=== PATIENT | female | born 1960 ===

== ENCOUNTER 2020-10-23 10:27 | Outpatient (REF) | payer BC, SELFPAY ==
[2020-10-23 10:33] LABS: MANUAL DIFF FLAG NO
[2020-10-23 10:44] LABS: Basophils Percent Auto 0.3 % (0-2); Eosinophils Absolute Auto 0.2 X10*3/uL (0.0-0.4); Eosinophils Percent Auto 2.4 % (0-4); Hematocrit 43.9 % (37-47); Hemoglobin 13.8 g/dl (12.0-16.0); Imm Gran Abs Auto 0.04 X10*3/uL (0.00-0.03); Imm Gran Pct Auto 0.4 % (0.0-0.4); Lymphocytes Absolute Auto 2.2 X10*3/uL (1.2-4.9); Lymphocytes Percent Auto 22.2 % (20-40); Mean Corpuscular HGB Conc 31.4 g/dl (31.0-35.0); Mean Corpuscular Hemoglobin 28.6 pg (27.0-33.0); Mean Corpuscular Volume 91.1 fL (80-98); Monocytes Absolute Auto 0.7 X10*3/uL (0.1-1.2); Monocytes Percent Auto 7.4 % (2-11); Neutrophils Absolute Auto 6.6 X10*3/uL (2.0-8.3); Neutrophils Percent Auto 67.3 % (45-73); Platelet Count 288 X10*3/uL (160-400); Red Blood Count 4.82 X10*6/uL (4.20-5.50); Red Cell Distribution Width 13.3 % (11.0-16.0); White Blood Count 9.8 X10*3/uL (4.8-10.8)
[2020-10-23 10:52] LABS: Estimated Average Glucose 114 mg/dL; Hemoglobin A1c % 5.6 %
[2020-10-23 11:19] LABS: Glucose Urine UA NEG (NEG); Leukocyte Esterase Urine 2+ (NEG); Nitrite Urine NEG (NEG); Specific Gravity - Urine 1.025 (1.005-1.025); Urine Blood 3+ (NEG); Urine Ketones NEG (NEG); Urine Protein TRACE MG/DL (NEG-TRACE)
[2020-10-23 11:37] LABS: Appearance Urine HAZY; Color Urine YELLOW
[2020-10-23 11:41] LABS: Alanine Aminotransferase 20 U/L (0-31); Alkaline Phosphatase 79 U/L (39-117); Anion Gap 14 (12-20); Aspartate Amino Transferase 21 U/L (5-31); Bilirubin Total 0.5 mg/dL (0.0-1.0); Blood Urea Nitrogen 11 mg/dL (9-16); Carbon Dioxide 27 mmol/L (22-29); Chloride 105 mmol/L (96-108); Cholesterol 191 mg/dL; Estimated Glomerular Filt Rate 58; Glucose Fasting 119 mg/dL (60-99); HDL Cholesterol 44 mg/dL; LDL Cholesterol Calculated 120 mg/dl; Potassium 4.7 mmol/L (3.3-5.1); Sodium 141 mmol/L (135-145); Total Protein 7.1 g/dL (6.5-8.0); Triglycerides 138 mg/dL
[2020-10-23 11:45] LABS: Vitamin D 25-OH Total 21.7 ng/mL (>30)
[2020-10-23 12:12] LABS: Microalbum/Creatinine Ratio Ur 20.7 ug/mg cr
[2020-10-23 12:23] LABS: Squamous Epithelial Cell Urine 2+ /LPF
== END 2020-10-23 10:28 | disposition home or self-care (01) ==
LOC: HO.LNP 10:27
PROVIDERS: Visit Provider Internal Medicine
DX: Z00.00 Encounter for general adult medical examination without abnormal findings (principal); E03.9 Hypothyroidism, unspecified; R73.03 Prediabetes; I10 Essential (primary) hypertension
CPT/HCPCS: 80053; 80061; 81001; 81003; 82043; 82306; 83036; 84443; 85025

== ENCOUNTER 2020-11-06 12:22 | Outpatient (REF) | payer BC, SELFPAY ==
[2020-11-06 14:18] LABS: Glucose Urine UA NEG (NEG); Leukocyte Esterase Urine 2+ (NEG); Nitrite Urine NEG (NEG); Specific Gravity - Urine <= 1.005 (1.005-1.025); Urine Blood TRACE (NEG); Urine Ketones NEG (NEG); Urine Protein NEG (NEG-TRACE)
[2020-11-06 14:20] LABS: Appearance Urine HAZY; Color Urine YELLOW
[2020-11-06 14:36] LABS: Bacteria Urine TRACE /LPF; RBC Urine 0-2 /HPF (0); Squamous Epithelial Cell Urine 1+ /LPF
== END 2020-11-06 12:23 | disposition home or self-care (01) ==
LOC: HO.10HDLNP 12:22
PROVIDERS: Visit Provider Internal Medicine
DX: Z87.448 Personal history of other diseases of urinary system (principal)
CPT/HCPCS: 81001; 87086

== ENCOUNTER 2020-12-04 10:24 | Outpatient (REF) | payer BC, SELFPAY ==
[2020-12-04 10:59] LABS: Glucose Urine UA NEG (NEG); Leukocyte Esterase Urine 2+ (NEG); Nitrite Urine NEG (NEG); Specific Gravity - Urine 1.025 (1.005-1.025); Urine Blood 3+ (NEG); Urine Ketones NEG (NEG); Urine Protein NEG (NEG-TRACE)
[2020-12-04 11:04] LABS: Appearance Urine HAZY; Color Urine YELLOW
[2020-12-04 11:32] LABS: Renal Epithelial Cells Urine 1+ /LPF; Squamous Epithelial Cell Urine 1+ /LPF; WBC Urine 0 /HPF (0-4)
== END 2020-12-04 10:25 | disposition home or self-care (01) ==
LOC: HO.LNP 10:24
PROVIDERS: Visit Provider Internal Medicine
DX: Z87.448 Personal history of other diseases of urinary system (principal)
CPT/HCPCS: 81001; 81003

== ENCOUNTER 2021-01-20 10:30 | Emergency (ER) | payer BC, SELFPAY ==
--- NOTE | ~2021-01-20 | CT_ITS ---
EXAMINATION: CT CHEST WITHOUT CONTRAST CLINICAL INFORMATION: Dyspnea COMPARISON: Previous chest x-ray from earlier the same day TECHNIQUE: Multidetector volumetric CT imaging of the chest was done. Axial MIP volume rendering provided. Sagittal and coronal reformatted images were obtained. This CT examination was performed using dose optimization techniques as appropriate, variously including the following: *Automated exposure control *Adjustment of mA and/or kV according to patient size (this includes techniques or standardized protocols for targeted exams where dose is matched to indication/reason for exam; i.e. 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 The largest measures 3 mm in the right lower lobe axial image 333 series 5. There is subsegmental atelectasis in both lower lobes. MEDIASTINUM: The mediastinum is normal. PLEURA: There is no pleural effusion. No pleural mass or thickening. AXILLA: No lymphadenopathy. UPPER ABDOMEN: There is a small air-fluid level posterior to the proximal stomach. This measures 3.2 x 3.4 cm. Appearance is questionable for a gastric diverticulum. Images through the upper abdomen are otherwise unremarkable. OSSEOUS STRUCTURES: There are degenerative changes of the spine. CT/CT chest wo con IMPRESSION: Small calcified pulmonary nodules probably representing calcified granulomas. Mild subsegmental atelectasis at the lung bases. No evidence of pneumonia. Small air-fluid level behind the stomach. This may represent a gastric diverticulum. If there is abdominal pain, possible abscess or perforation should be excluded and additional abdominal imaging with oral and IV contrast would be recommended
--- NOTE | ~2021-01-20 | XR_ITS ---
EXAMINATION: XR CHEST CLINICAL INFORMATION: SOB. COMPARISON: None TECHNIQUE: Chest 07/19/2016 FINDINGS: No significant abnormality is noted involving the heart, lungs, mediastinum, bony thorax or soft tissues. XR/XR chest 2V IMPRESSION: Markable chest exam
[2021-01-20 10:55] VITALS: BP 179/87; PULSE 69; RESP 18; TEMP 36.7; O2SAT 96; BMI 42.1
[2021-01-20 11:48] LABS: COVID-19 Test Negative (Negative); IDNOW Serial# 9DD0AD1C
[2021-01-20 12:30] LABS: MANUAL DIFF FLAG NO
[2021-01-20 12:32] LABS: Basophils Percent Auto 0.2 % (0-2); Eosinophils Percent Auto 0.1 % (0-4); Hematocrit 44.1 % (37-47); Hemoglobin 14.2 g/dl (12.0-16.0); Imm Gran Abs Auto 0.11 X10*3/uL (0.00-0.03); Imm Gran Pct Auto 0.7 % (0.0-0.4); Lymphocytes Absolute Auto 1.7 X10*3/uL (1.2-4.9); Lymphocytes Percent Auto 10.2 % (20-40); Mean Corpuscular HGB Conc 32.2 g/dl (31.0-35.0); Mean Corpuscular Volume 90.2 fL (80-98); Mean Platelet Volume 9.2 fL (9.4-12.3); Monocytes Percent Auto 6.2 % (2-11); Neutrophils Absolute Auto 13.8 X10*3/uL (2.0-8.3); Neutrophils Percent Auto 82.6 % (45-73); Platelet Count 290 X10*3/uL (160-400); Red Blood Count 4.89 X10*6/uL (4.20-5.50); Red Cell Distribution Width 13.8 % (11.0-16.0); White Blood Count 16.7 X10*3/uL (4.8-10.8)
[2021-01-20 12:46] LABS: Alanine Aminotransferase 18 U/L (0-31); Albumin Level 3.8 g/dL (3.5-5.0); Alkaline Phosphatase 78 U/L (39-117); Anion Gap 13 (12-20); Aspartate Amino Transferase 14 U/L (5-31); Bilirubin Direct 0.2 mg/dL (0.0-0.5); Bilirubin Total 0.4 mg/dL (0.0-1.0); Blood Urea Nitrogen 17 mg/dL (9-16); Carbon Dioxide 26 mmol/L (22-29); Chloride 104 mmol/L (96-108); Creatinine Clr Calc Pharmacy 87.7; Estimated Glomerular Filt Rate > 60; Glucose Random 98 mg/dL (60-115); Lipase 44 U/L (8-78); Potassium 4.9 mmol/L (3.3-5.1); Sodium 138 mmol/L (135-145); Total Protein 6.7 g/dL (6.5-8.0)
[2021-01-20 12:50] LABS: B Type Natriuretic Peptide 35 pg/mL (<100)
--- NOTE | 2021-01-20 13:10 | ED_ITS ---
HPI - SOB/Dyspnea General Chief Complaint: Dyspnea Stated Complaint: cough, diff breathing Time Seen by Provider: 01/20/21 13:09 Source: patient Mode of arrival: ambulatory Limitations: no limitations History of Present Illness MD elicited complaint: shortness of breath Pertinent past history: asthma Onset (ago): day(s) (over a week) Context: recent illness (dx with bronchitis - treated with augmentin completed Tuesday (7 days) prednisone taper now) Timing: constant Severity: moderate Exacerbating factors: lying flat, exertion and coughing Relieving factors: nothing Known history of: asthma Associated symptoms: cough and sputum production Treatment prior to arrival: other (antibiotics, currently on pred taper) Related Data Home Medications Medication Instructions Recorded Confirmed albuterol sulfate 90 mcg/actuation 1 puff PO Q4H PRN 01/20/21 01/20/21 aerosol inhaler cholecalciferol (vitamin D3) 25 25 mcg PO DAILY 01/20/21 01/20/21 mcg (1,000 unit) tablet (Vitamin D3) magnesium aspartate-potassium 1 cap PO DAILY 01/20/21 01/20/21 aspartate 250 mg-250 mg capsule prednisone 10 mg tablet 10 mg PO DAILY 01/20/21 01/20/21 thyroid (pork) 15 mg tablet 1 tab PO QAM 01/20/21 01/20/21 ([place] Thyroid) thyroid (pork) 30 mg tablet 1 tab PO QAM 01/20/21 01/20/21 ([place] Thyroid) Allergies Allergy/AdvReac Type Severity Reaction Status Date / Time pecan nut Allergy Unknown ITCHY Verified 01/20/21 10:58 THROAT walnut Allergy Unknown ITCHY Verified 01/20/21 10:58 THROAT erythromycin base AdvReac Intermediate VOMITING Verified 01/20/21 10:58 [Erythromycin Base] Review of Systems Review of Systems: Constitutional : pos Fever, No Chills ENT/Mouth : No sore throat, No Rhinorrhea, No Swallowing Difficulty Eyes: No Eye Pain, No Swelling, No Redness Cardiovascular : No Chest Pain, positive SOB, No Orthopnea, no Edema Respiratory : pos Cough, pos Sputum, No Wheezing, positive dyspnea Gastrointestinal : No Nausea, No Vomiting, No Diarrhea, No abdominal Pain, No Hematochezia, No Melena Genitourinary : No Dysuria, No Urinary Frequency, No Hematuria Musculoskeletal : No joint pain, No Myalgias Skin : No Skin Lesions, No rash Neuro : No Weakness, No Numbness, No Dizziness, No Headache Psych : No Anxiety/Panic, No Depression Heme/Lymph: No Bruising, No Lymphadenopathy Endocrine : No Polyuria, No Polydipsia All other systems reviewed and are negative [facility] Past Medical History Attestation statement: The following information was validated with the patient. Medical History Asthma Hypothyroid Social History Social History (Updated 01/20/21 @ 13:37 by Pushpa Howard DO) Alcohol intake: never Patient Tobacco Use Status: Never used Tobacco Advance Directives: No Advance Directives Information Provided: Yes Physical Exam Vital Signs: Vital Signs: Last Vital Signs Temp 98.0 F 01/20/21 10:55 Pulse 69 01/20/21 10:55 Resp 18 01/20/21 10:55 BP 179/87 H 01/20/21 10:55 Pulse Ox 96 01/20/21 10:55 Body Mass Index 42.1 Appearance: Alert. Oriented X3. No acute distress. Eyes: Pupils equal, round and reactive to light. ENT: Pharynx normal. Neck: Normal inspection. Neck supple. CVS: Normal heart rate and rhythm. Pulses normal. Respiratory: No respiratory distress. Breath sounds normal. Abdomen: Soft and non-tender. Skin: Skin warm and dry. Normal skin color. Normal skin turgor. Extremities: No lower extremity edema. No calf ttp Neuro: Oriented X 3. No motor deficit. No sensory deficit. Course Course Course Narrative: WBC due to steroid use signed out to Dr. Zarate pending CT scan ddimer negative MDM - SOB/Dyspnea MDM Narrative Medical decision making narrative: 60 yo female with hx of bronchitis and asthma states she feels short of breath with a cough and she has had fevers cannot sleep - treated with steroids and augmentin no improvement in symptoms at this time will obtain EKG, trop, ddimer, CXR, COVID swab - dispo per results and findings, possible CT chest for underlying pneumonia Lab Data Result diagrams: 01/20/21 12:25 01/20/21 12:25 Labs: Lab Results 01/20/21 01/20/21 01/20/21 Range/Units 11:02 12:25 12:25 WBC 16.7 H (4.8-10.8) X10*3/uL RBC 4.89 (4.20-5.50) X10*6/uL Hgb 14.2 (12.0-16.0) g/dl Hct 44.1 (37-47) % MCV 90.2 (80-98) fL MCH 29.0 (27.0-33.0) pg MCHC 32.2 (31.0-35.0) g/dl RDW 13.8 (11.0-16.0) % Plt Count 290 (160-400) X10*3/uL MPV 9.2 L (9.4-12.3) fL Immature Gran % (Auto) 0.7 H (0.0-0.4) % Neut % (Auto) 82.6 H (45-73) % Lymph % (Auto) 10.2 L (20-40) % [place] % (Auto) 6.2 (2-11) % Eos % (Auto) 0.1 (0-4) % Baso % (Auto) 0.2 (0-2) % Lymph # (Auto) 1.7 (1.2-4.9) X10*3/uL [place] # (Auto) 1.0 (0.1-1.2) X10*3/uL Eos # (Auto) 0.0 (0.0-0.4) X10*3/uL Baso # (Auto) 0.0 (0.0-0.2) X10*3/uL Abs Immat Gran (auto) 0.11 H (0.00-0.03) X10*3/uL Absolute Neuts (auto) 13.8 H (2.0-8.3) X10*3/uL Absolute Nucleated RBC 0.000 (0.0-0.012) X10*3/uL Nucleated RBC % (auto) 0.0 (0.0-0.2) /100WBC Sodium 138 (135-145) mmol/L Potassium 4.9 (3.3-5.1) mmol/L Chloride 104 (96-108) mmol/L Carbon Dioxide 26 (22-29) mmol/L Anion Gap 13 (12-20) BUN 17 H D (9-16) mg/dL Creatinine 0.87 (0.5-1.4) mg/dL Estim Creat Clear Calc 87.7 Estimated GFR > 60 Random Glucose 98 (60-115) mg/dL Calcium 9.0 (8.4-10.2) mg/dL Total Bilirubin 0.4 (0.0-1.0) mg/dL Direct Bilirubin 0.2 (0.0-0.5) mg/dL AST 14 (5-31) U/L ALT 18 (0-31) U/L Alkaline Phosphatase 78 (39-117) U/L B-Natriuretic Peptide (<100) pg/mL Total Protein 6.7 (6.5-8.0) g/dL Albumin 3.8 (3.5-5.0) g/dL Lipase 44 (8-78) U/L COVID-19 (IMELDA) Negative (Negative) COVID-19 Clin Com See Note 01/20/21 Range/Units 12:25 WBC (4.8-10.8) X10*3/uL RBC (4.20-5.50) X10*6/uL Hgb (12.0-16.0) g/dl Hct (37-47) % MCV (80-98) fL MCH (27.0-33.0) pg MCHC (31.0-35.0) g/dl RDW (11.0-16.0) % Plt Count (160-400) X10*3/uL MPV (9.4-12.3) fL Immature Gran % (Auto) (0.0-0.4) % Neut % (Auto) (45-73) % Lymph % (Auto) (20-40) % [place] % (Auto) (2-11) % Eos % (Auto) (0-4) % Baso % (Auto) (0-2) % Lymph # (Auto) (1.2-4.9) X10*3/uL Austin # (Auto) (0.1-1.2) X10*3/uL Eos # (Auto) (0.0-0.4) X10*3/uL Baso # (Auto) (0.0-0.2) X10*3/uL Abs Immat Gran (auto) (0.00-0.03) X10*3/uL Absolute Neuts (auto) (2.0-8.3) X10*3/uL Absolute Nucleated RBC (0.0-0.012) X10*3/uL Nucleated RBC % (auto) (0.0-0.2) /100WBC Sodium (135-145) mmol/L Potassium (3.3-5.1) mmol/L Chloride (96-108) mmol/L Carbon Dioxide (22-29) mmol/L Anion Gap (12-20) BUN (9-16) mg/dL Creatinine (0.5-1.4) mg/dL Estim Creat Clear Calc Estimated GFR Random Glucose (60-115) mg/dL Calcium (8.4-10.2) mg/dL Total Bilirubin (0.0-1.0) mg/dL Direct Bilirubin (0.0-0.5) mg/dL AST (5-31) U/L ALT (0-31) U/L Alkaline Phosphatase (39-117) U/L B-Natriuretic Peptide 35 (<100) pg/mL Total Protein (6.5-8.0) g/dL Albumin (3.5-5.0) g/dL Lipase (8-78) U/L COVID-19 (IMELDA) (Negative) COVID-19 Clin Com ECG Data Attestation: I personally reviewed and interpreted this ECG as follows: ECG interpretation date: 01/20/21 ECG interpretation time: 15:30 Interpretation: Rate: 63 Rhythm: NSR Hannah: normal Normal P waves. Normal MIRNA. Normal QRS complex. ST T wave : normal no FARZAD qTC: normal prior studies: no acute ischemia The study has been interpreted contemporaneously by me. . Discharge Plan Discharge Clinical Impression: Acute dyspnea Prescriptions: No Action prednisone 10 mg tablet 10 mg PO DAILY RF: 0 magnesium, potassium aspartate [Potassium, Magnesium Aspartat] 250-250 mg Capsule 1 cap PO DAILY RF: 0 albuterol sulfate 90 mcg/actuation HFA aerosol inhaler 1 puff PO Q4H PRN (Reason: Wheezing) RF: 0 cholecalciferol (vitamin D3) [Vitamin D3] 25 mcg (1,000 unit) Tablet 25 mcg PO DAILY RF: 0 thyroid (pork) [[place] Thyroid] 15 mg tablet 1 tab PO QAM RF: 0 thyroid (pork) [[place] Thyroid] 30 mg tablet 1 tab PO QAM RF: 0
--- NOTE | 2021-01-20 13:27 | ECG_ITS ---
Test Reason : DYSPNEA Blood Pressure : / mmHG Vent. Rate : 063 BPM Atrial Rate : 063 BPM P-R Int : 144 ms QRS Dur : 076 ms QT Int : 416 ms P-R-T Axes : 047 015 007 degrees QTc Int : 425 ms Normal sinus rhythm Low voltage QRS Borderline ECG No previous ECGs available Referred By: Pushpa Howard Electronically Signed By:JAYME PHIPPS MD
--- NOTE | 2021-01-20 14:44 | PHA.MEDREC ---
Pharmacy Consult ? Medication Reconciliation Pharmacy has completed the medication reconciliation. There are no remarkable issues for provider's attention. Monisha Ruby, HariD
[2021-01-20 15:56] LABS: D Dimer < 200 NG/ML
[2021-01-20 16:06] LABS: Troponin-I High Sensitivity < 3.5 ng/L (<3.5-17.0)
== END 2021-01-20 17:56 | disposition home or self-care (01) ==
PROVIDERS: Emergency Medicine; Emergency Provider Emergency Medicine Emergency Medical Services; PCP Internal Medicine
DX: R06.02 Shortness of breath (principal); J45.909 Unspecified asthma, uncomplicated; R05.9 Cough, unspecified; Z20.822 Contact with and (suspected) exposure to COVID-19; Z79.899 Other long term (current) drug therapy
CPT/HCPCS: 36415; 71046; 71250; 80048; 80076; 83690; 83880; 84484; 85025; 85379; 87635; 93005; 99283; 99284

== ENCOUNTER 2021-02-09 10:23 | Outpatient (REF) | payer BC, SELFPAY ==
[2021-02-09 10:26] LABS: MANUAL DIFF FLAG NO
[2021-02-09 11:12] LABS: Basophils Percent Auto 0.3 % (0-2); Eosinophils Absolute Auto 0.2 X10*3/uL (0.0-0.4); Eosinophils Percent Auto 2.4 % (0-4); Hematocrit 42.9 % (37.0-47.0); Hemoglobin 13.5 g/dl (12.0-16.0); Imm Gran Abs Auto 0.06 X10*3/uL (0.00-0.03); Imm Gran Pct Auto 0.7 % (0.0-0.4); Lymphocytes Absolute Auto 1.5 X10*3/uL (1.2-4.9); Lymphocytes Percent Auto 16.5 % (20-40); Mean Corpuscular HGB Conc 31.5 g/dl (31.0-35.0); Mean Corpuscular Hemoglobin 29.2 pg (27.0-33.0); Mean Corpuscular Volume 92.7 fL (80.0-98.0); Mean Platelet Volume 9.9 fL (9.4-12.3); Monocytes Absolute Auto 0.6 X10*3/uL (0.1-1.2); Monocytes Percent Auto 6.8 % (2-11); Neutrophils Absolute Auto 6.61 x10*3/uL (2.0-8.3); Neutrophils Percent Auto 73.3 % (45-73); Platelet Count 285 X10*3/uL (160-400); Red Blood Count 4.63 X10*6/uL (4.20-5.50); Red Cell Distribution Width 13.5 % (11.0-16.0)
== END 2021-02-09 10:24 | disposition home or self-care (01) ==
LOC: HO.LNP 10:23
PROVIDERS: Visit Provider Internal Medicine
DX: D72.828 Other elevated white blood cell count (principal)
CPT/HCPCS: 85025

== ENCOUNTER 2021-04-15 11:38 | Outpatient (REF) | payer BC, SELFPAY ==
[2021-04-15 12:59] LABS: Influenza A PCR NEGATIVE (Negative); Influenza B PCR NEGATIVE (Negative); Resp Syncy Virus RNA Qual PCR NEGATIVE (Negative); SARS COV2 PCR INHOUSE NEGATIVE (Negative)
== END 2021-04-15 11:39 | disposition home or self-care (01) ==
LOC: HO.LNP 11:38
PROVIDERS: Visit Provider Nurse Practitioner Family
DX: Z20.822 Contact with and (suspected) exposure to COVID-19 (principal); J02.9 Acute pharyngitis, unspecified
CPT/HCPCS: 0241U

== ENCOUNTER 2021-10-26 11:07 | Outpatient (REF) | payer BC, SELFPAY ==
[2021-10-26 11:11] LABS: MANUAL DIFF FLAG NO
[2021-10-26 11:28] LABS: Appearance Urine CLEAR; Color Urine YELLOW; Glucose Urine UA NEG (NEG); Leukocyte Esterase Urine 1+ (NEG); Nitrite Urine NEG (NEG); Urine Blood 3+ (NEG); Urine Ketones NEG (NEG); Urine Protein NEG (NEG-TRACE)
[2021-10-26 11:39] LABS: Estimated Average Glucose 105 mg/dL; Hemoglobin A1c % 5.3 %
[2021-10-26 11:40] LABS: Basophils Percent Auto 0.3 % (0-2); Eosinophils Absolute Auto 0.2 X10*3/uL (0.0-0.4); Eosinophils Percent Auto 1.7 % (0-4); Hematocrit 42.4 % (37.0-47.0); Hemoglobin 13.5 g/dl (12.0-16.0); Imm Gran Abs Auto 0.04 X10*3/uL (0.00-0.03); Imm Gran Pct Auto 0.4 % (0.0-0.4); Lymphocytes Absolute Auto 1.7 X10*3/uL (1.2-4.9); Mean Corpuscular HGB Conc 31.8 g/dl (31.0-35.0); Monocytes Absolute Auto 0.6 X10*3/uL (0.1-1.2); Monocytes Percent Auto 6.6 % (2-11); Neutrophils Absolute Auto 6.8 x10*3/uL (2.0-8.3); Platelet Count 289 X10*3/uL (160-400); Red Blood Count 4.66 X10*6/uL (4.20-5.50); Red Cell Distribution Width 14.6 % (11.0-16.0); White Blood Count 9.3 X10*3/uL (4.8-10.8)
[2021-10-26 11:41] LABS: Alanine Aminotransferase 23 U/L (0-31); Alkaline Phosphatase 76 U/L (39-117); Anion Gap 11 (12-20); Aspartate Amino Transferase 19 U/L (5-31); Bilirubin Total 0.4 mg/dL (0.0-1.0); Blood Urea Nitrogen 18 mg/dL (9-16); Calcium 8.8 mg/dL (8.4-10.2); Carbon Dioxide 29 mmol/L (22-29); Chloride 106 mmol/L (96-108); Cholesterol 174 mg/dL; Estimated Glomerular Filt Rate 58; Glucose Fasting 106 mg/dL (60-99); HDL Cholesterol 42 mg/dL; LDL Cholesterol Calculated 115 mg/dl; Potassium 4.5 mmol/L (3.3-5.1); Sodium 141 mmol/L (135-145); Total Protein 6.9 g/dL (6.5-8.0); Triglycerides 87 mg/dL
[2021-10-26 11:44] LABS: Squamous Epithelial Cell Urine 1+ /LPF; Urine Talc Crystals 1+ /LPF
[2021-10-26 11:58] LABS: TSH reflex Free T4 1.95 uIU/mL (0.32-4.0)
[2021-10-26 12:22] LABS: Creatinine Urine 179.83 mg/dL; Microalbum/Creatinine Ratio Ur 12.2 ug/mg cr
== END 2021-10-26 11:08 | disposition home or self-care (01) ==
LOC: HO.LNP 11:07
PROVIDERS: Visit Provider Internal Medicine
DX: Z00.00 Encounter for general adult medical examination without abnormal findings (principal); I10 Essential (primary) hypertension; R73.03 Prediabetes; E03.9 Hypothyroidism, unspecified; D72.828 Other elevated white blood cell count
CPT/HCPCS: 80053; 80061; 81001; 82043; 83036; 84443; 85025

== ENCOUNTER 2021-11-18 09:55 | Outpatient (REF) | payer BC, SELFPAY ==
--- NOTE | ~2021-11-18 | MM_ITS ---
EXAMINATION: BONE DENSITOMETRY CLINICAL INDICATION: Menopause. COMPARISON: None (current study represents initial baseline exam). TECHNIQUE: Using a [employer] DXA System (software version: 13.1) manufactured by [employer], dual-energy x-ray absorptiometry was performed of the lumbar spine and left hip. The images are of good technical quality. Summary results are attached. FINDINGS: AP SPINE L1-L4: BMD 1.069 g/cm2, Z-score -0.7, T-score -0.9, normal. LEFT FEMUR, NECK: BMD 1.025 g/cm2, Z-score 0.5, T-score -0.1, normal. LEFT FEMUR, TOTAL: BMD 1.115 g/cm2, Z-score 1.1, T-score 0.9, normal. IDENTIFIED RISK FACTORS: Menopause, low calcium intake, hysterectomy, bilateral oophorectomy. HISTORY OF FRACTURE: None listed. MEDICATIONS: Vitamin D. MM/XR DEXA axial skeleton IMPRESSION: 1. DIAGNOSIS: Normal bone density based on the lowest T-score value of -0.9 in the lumbar spine applying World Health Organization criteria. 2. 10-YEAR FRACTURE RISK PREDICTION, FRAX: According to the guidelines, FRAX calculation should only be performed on patients in the osteopenia bone density category. Therefore, FRAX was not performed on this patient. 3. Treatment Recommendations: NOF guidelines recommend consideration for treatment in postmenopausal women and men age 50 and older presenting with the following: -A hip or vertebral (clinical or morphometric) fracture. -T-score less than or equal to -2.5 at the femoral neck or spine after appropriate evaluation to exclude secondary causes. -Low bone mass at the hip or spine and a 10-year fracture probability by FRAX of greater than or equal to 3% for hip fracture or greater than or equal to 20% for major osteoporotic fracture based on the [place] adapted WHO algorithm. 4. Other Recommendations: All treatment decisions require clinical judgment and consideration of individual patient factors, including patient preferences, comorbidities, previous drug use, risk factors not captured in the FRAX model (e.g. frailty, falls, vitamin D deficiency, increased bone turnover, interval significant decline in bone density) and possible under or overestimation of fracture risk by FRAX. FUTURE SCAN RECOMMENDATION: People with diagnosed cases of osteoporosis or at high risk for fracture should have regular bone mineral density tests. For patients eligible for Medicare, routine testing is allowed once every 2 years. The testing frequency can be increased to one year for patients who have rapidly progressing disease, those who are receiving or discontinuing medical therapy to restore bone mass, or have additional risk factors.
== END 2021-11-18 09:56 | disposition home or self-care (01) ==
LOC: HO.MAMMO 09:55
PROVIDERS: PCP Internal Medicine; Visit Provider Internal Medicine
DX: Z13.820 Encounter for screening for osteoporosis (principal); Z78.0 Asymptomatic menopausal state
CPT/HCPCS: 77080

== ENCOUNTER 2022-10-07 11:01 | Outpatient (REF) | payer BC, SELFPAY ==
[2022-10-07 11:12] LABS: MANUAL DIFF FLAG NO
[2022-10-07 12:35] LABS: Basophils Percent Auto 0.4 % (0-2); Eosinophils Absolute Auto 0.3 X10*3/uL (0.0-0.4); Eosinophils Percent Auto 3.3 % (0-4); Hematocrit 42.4 % (37.0-47.0); Hemoglobin 13.4 g/dl (12.0-16.0); Imm Gran Abs Auto 0.03 X10*3/uL (0.00-0.03); Imm Gran Pct Auto 0.4 % (0.0-0.4); Lymphocytes Absolute Auto 1.9 X10*3/uL (1.2-4.9); Lymphocytes Percent Auto 22.7 % (20-40); Mean Corpuscular HGB Conc 31.6 g/dl (31.0-35.0); Mean Corpuscular Hemoglobin 28.7 pg (27.0-33.0); Mean Corpuscular Volume 90.8 fL (80.0-98.0); Monocytes Absolute Auto 0.7 X10*3/uL (0.1-1.2); Neutrophils Absolute Auto 5.4 x10*3/uL (2.0-8.3); Neutrophils Percent Auto 65.2 % (45-73); Platelet Count 262 X10*3/uL (160-400); Red Blood Count 4.67 X10*6/uL (4.20-5.50); Red Cell Distribution Width 13.3 % (11.0-16.0); White Blood Count 8.3 X10*3/uL (4.8-10.8)
[2022-10-07 12:48] LABS: Estimated Average Glucose 108 mg/dL; Hemoglobin A1c % 5.4 %
[2022-10-07 12:54] LABS: Alanine Aminotransferase 19 U/L (0-31); Albumin Level 3.6 g/dL (3.5-5.0); Alkaline Phosphatase 66 U/L (39-117); Anion Gap 13 (12-20); Aspartate Amino Transferase 17 U/L (5-31); Bilirubin Total 0.4 mg/dL (0.0-1.0); Blood Urea Nitrogen 13 mg/dL (9-16); Calcium 9.1 mg/dL (8.4-10.2); Carbon Dioxide 28 mmol/L (22-29); Chloride 106 mmol/L (96-108); Cholesterol 174 mg/dL; Estimated Glomerular Filt Rate > 60; Glucose Fasting 115 mg/dL (60-99); HDL Cholesterol 44 mg/dL; LDL Cholesterol Calculated 110 mg/dl; Potassium 4.9 mmol/L (3.3-5.1); Sodium 142 mmol/L (135-145); Total Protein 6.1 g/dL (6.5-8.0); Triglycerides 103 mg/dL
[2022-10-07 13:05] LABS: Appearance Urine Clear; Color Urine Yellow; Glucose Urine UA Negative (Negative); Leukocyte Esterase Urine Small (1+) (Negative); Nitrite Urine Negative (Negative); PH 6.5 (5.0-9.0); UMIC TRIGGER UACC YES; Urine Blood Small (1+) (Negative); Urine Ketones Negative (Negative); Urine Protein Negative (Neg-Trace)
[2022-10-07 13:10] LABS: TSH reflex Free T4 2.77 uIU/mL (0.32-4.0)
[2022-10-07 13:14] LABS: Bacteria Urine None Seen (None Seen); Hyaline Casts Urine 0-2 /LPF (0-2); Other Crystals Urine Present; RBC Urine >20 /HPF (0-2); UACC Culture Trigger YES; WBC Urine 0-5 /HPF (0-5)
[2022-10-07 13:32] LABS: Creatinine Urine 185.92 mg/dL; Microalbum/Creatinine Ratio Ur 6.9 ug/mg cr
== END 2022-10-07 11:02 | disposition home or self-care (01) ==
LOC: HO.10HDL 11:01
PROVIDERS: Visit Provider Internal Medicine
DX: Z00.00 Encounter for general adult medical examination without abnormal findings (principal); I10 Essential (primary) hypertension; R73.03 Prediabetes; E03.9 Hypothyroidism, unspecified; D72.828 Other elevated white blood cell count
CPT/HCPCS: 36415; 80053; 80061; 81001; 82043; 83036; 84443; 85025; 87086; 87147

== ENCOUNTER 2022-10-26 16:05 | Outpatient (REF) | payer BC, SELFPAY | END 2022-10-26 16:06 | disposition home or self-care (01) | LOC: HO.LNP 16:05 | PROVIDERS: Visit Provider Internal Medicine | DX: Z13.89 Encounter for screening for other disorder (principal) ==

== ENCOUNTER 2023-03-12 09:07 | Outpatient (AMB) | payer BC, SELFPAY ==
--- OUTSIDE RECORDS SUMMARY | 2023-03-12 09:08 | XMS_ITS | Continuity of Care Document ---
Author Name Unknown Organization [facility] ter Address [address] [place] [id number] Care Team Providers Care Brimmer Blocker Name Role Phone Stone Chen MD Primary Care Physician [phone] [id number] Encounter [facility] [place] Date(s): 12/12/19 - 07/09/[address] [id number] Attending Physician: Stone Chen MD Admitting Physician: Stone Chen MD Referring Physician: Stone Chen MD Allergies, Adverse Reactions, Alerts Substance Reaction Severity Status Zithromax Z-Mario N&V Active Other Food Allergy walnuts,pecans,hazlenuts Active Medications Claritin Tablet 10 mg, By Mouth, Daily, Maintenance, 07/25/12 15:47:47 Start Date: 07/25/12 Status: Ordered Problem List Condition Effective Dates Status Health Status Inform ant Change in stool habits(Confirmed) Active Screening colonoscopy(Confirmed) Active Uterine prolapse(Confirmed) Active Well female adult(Confirmed) Active Social History Social History Type Response Smoking Status Former smoker entered on: 10/05/13 Sex
--- NOTE | 2023-03-12 09:26 | MHC.OFFWIV ---
Intake Vital Signs 03/12/23 09:35 Height 5 ft 6 in Weight 251 lb BMI 40.5 BP 128/70 Blood Pressure Location Rt brachial Pulse 82 Pulse Source Pulse Oximeter Temp 98.1 F Temp Source Oral Pulse Oximetry (%) 98 Oxygen Delivery Method Room Air Intake Visit Reasons: EP, sore throat ([phone]) Intake Note: Pt is here today c/o sore throat since yesterday Patient Tobacco Use Status: Never used Tobacco Allergies pecan nut Allergy (Unknown, Verified 03/12/23 09:26) ITCHY THROAT walnut Allergy (Unknown, Verified 03/12/23 09:26) ITCHY THROAT erythromycin base [Erythromycin Base] Adverse Reaction (Intermediate, Verified 03/12/23 09:26) VOMITING Do you need a note to return to daycare/school/sports/work: Yes HPI EP, sore throat ([phone]) HPI Details Patient is a 62-year-old female who comes to the walk-in clinic with sore throat since yesterday, low-grade fever and chills as well as general malaise. She did not test for COVID at home yet. 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 She denies weakness or dizziness, severe headache, nausea vomiting or diarrhea, difficulty swallowing, significant runny nose or cough, shortness of breath or chest pain, myalgias, loss of sense of taste or smell, or other significant associated symptoms. [facility] Medical History Hypothyroid Asthma Social History Alcohol intake: never Patient Tobacco Use Status: Never used Tobacco Review of Systems Const All systems reviewed & are unremarkable except as noted in HPI and below Physical Exam Vital Signs: Last Vital Signs Temp 98.1 F 03/12/23 09:35 Pulse 82 03/12/23 09:35 BP 128/70 03/12/23 09:35 Pulse Ox 98 03/12/23 09:35 Oxygen Delivery Method Room Air 03/12/23 09:35 BMI result Body Mass Index 40.5 Results AMB Rapid Strep AMB Rapid Strep Negative Last Edit by [place] CMA on 03/12/23 09:44 Results Reviewed Results Reviewed: Laboratory Last Values Strep Scn Rapid Clinic Negative 03/12/23 09:36 negative strep test Assessment & Plan Assessment & Plan (1) Viral syndrome: Code(s): B34.9 - Viral infection, unspecified Plan: Patient is a 62-year-old female with apparent viral syndrome. Rapid strep test negative, and no significant anterior cervical lymphadenopathy, high-grade fever or rapid heart rate, exudates or petechiae. She is pending testing for rapid COVID, as well as PCR for flu COVID and RSV. Advised to treat with supportive care, and to follow up if symptoms persist or worsen Orders: Orders AMB Rapid Strep Screen 03/12/23 Z13.9 - Encounter for screening, unspecified BinaxNOW Covid-19 Ag 03/12/23 Z20.822 - Contact with and (suspected) exposure to COVID-19 SARS-CoV2/FLU/RSV 03/12/23 R05.9 - Cough, unspecified Coding Level of Care Code Est Pt Level 4 (34853) Diagnoses Viral syndrome B34.9
[2023-03-12 09:35] VITALS: BP 128/70; PULSE 82; TEMP 36.7; O2SAT 98; BMI 40.5
== END 2023-03-12 10:30 | disposition home or self-care (01) ==
PROVIDERS: PCP Internal Medicine; Visit Provider Physician Assistant Medical
DX: J02.9 Acute pharyngitis, unspecified (principal)
CPT/HCPCS: 87880; 99214

== ENCOUNTER 2023-03-12 10:16 | Outpatient (REF) | payer BC, SELFPAY ==
[2023-03-12 10:43] LABS: Binax Internal Control QC Valid; Binax Now Covid-19 Ag Negative (Negative); Binax Performed by: PAULP
[2023-03-12 12:14] LABS: Influenza A PCR NEGATIVE (Negative); Influenza B PCR NEGATIVE (Negative); Resp Syncy Virus RNA Qual PCR NEGATIVE (Negative); SARS COV2 PCR INHOUSE NEGATIVE (Negative)
== END 2023-03-12 10:17 | disposition home or self-care (01) ==
LOC: HO.HMGCLDS 10:16
PROVIDERS: PCP Internal Medicine; Visit Provider Physician Assistant Medical
DX: Z11.52 Encounter for screening for COVID-19 (principal); R05.9 Cough, unspecified; Z20.822 Contact with and (suspected) exposure to COVID-19
CPT/HCPCS: 0241U; 87811; C9803

== ENCOUNTER 2023-03-30 08:31 | Outpatient (AMB) | payer BC, SELFPAY ==
[2023-03-30 08:33] VITALS: BP 120/72; PULSE 73; TEMP 36.3; O2SAT 97; BMI 40.5
--- NOTE | 2023-03-30 08:33 | MHC.OFFWIV ---
Intake Vital Signs 03/30/23 08:33 Height 5 ft 6 in Weight 251 lb BMI 40.5 BP 120/72 Blood Pressure Location Lt brachial Position Sitting Pulse 73 Pulse Source Pulse Oximeter Temp 97.4 F Temp Source Temporal Artery Scan Pulse Oximetry (%) 97 Oxygen Delivery Method Room Air Intake Visit Reasons: EST/right side ear pain (lobby masked) Intake Note: pt is here today for rt side ear pain started this morning Patient Tobacco Use Status: Never used Tobacco Allergies pecan nut Allergy (Unknown, Verified 03/30/23 08:33) ITCHY THROAT walnut Allergy (Unknown, Verified 03/30/23 08:33) ITCHY THROAT erythromycin base [Erythromycin Base] Adverse Reaction (Intermediate, Verified 03/30/23 08:33) VOMITING Do you need a note to return to daycare/school/sports/work: Yes HPI EST/right side ear pain (lobby masked) HPI Details 62 year old patient presents today with a right ear pain and right sided throat pain x1 day. Denies fever however has reported chills yesterday. 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 Denies any respiratory symptoms. [facility] Medical History Hypothyroid Asthma Social History Alcohol intake: never Patient Tobacco Use Status: Never used Tobacco Review of Systems Const All systems reviewed & are unremarkable except as noted in HPI and below Physical Exam Vital Signs: Last Vital Signs Temp 97.4 F 03/30/23 08:33 Pulse 73 03/30/23 08:33 BP 120/72 03/30/23 08:33 Pulse Ox 97 03/30/23 08:33 Oxygen Delivery Method Room Air 03/30/23 08:33 BMI result Body Mass Index 40.5 Const General: cooperative, healthy appearing, comfortable and no acute distress HEENT Head: Yes normal to inspection Ears: hearing grossly normal bilaterally, external ears normal and TM's normal bilaterally General nose exam: Normal external nose present and Normal nasal mucous membranes and turbinates present Face and sinus: Yes normal facial exam and Yes sinus tenderness (maxillary) Mouth: Normal oral and palatal mucosa present Throat: Yes posterior oropharynx abnormal (mild erythema) Neck Neck: Yes no lymphadenopathy Resp Effort & Inspection: normal respiratory effort and able to speak in complete sentences Auscultation: clear to auscultation bilaterally Cardio Jugular venous distension: no JVD Palpation: normal PMI Rate: regular rate Rhythm: regular rhythm Skin General skin exam: no rashes or lesions noted Extrem General: Yes capillary refill normal and Yes no clubbing, cyanosis or edema Psych Appearance: grossly normal Mental Status: mental status grossly normal Speech and movement: Normal speech and movement present Results AMB Rapid Strep AMB Rapid Strep Negative Last Edit by [place] CMA on 03/30/23 08:53 Assessment & Plan Assessment & Plan (1) Acute sinusitis: Code(s): J01.90 - Acute sinusitis, unspecified Qualifiers: Sinusitis location: maxillary Recurrence: non-recurrent Qualified Code(s): J01.00 - Acute maxillary sinusitis, unspecified Plan: We discussed treatment options for this - conservative measures vs. abx treatment. Patient would like to start abx if possible. I will start her on a short course of amoxicillin, which has worked well for her previously. I advised an otc decongestant and tylenol/motrin as needed for symptomatic treatment. If she does not improve with these measures she should return to the clinic for further evaluation. She verbalizes understanding and agrees to plan. Work note provided. Orders: Orders AMB Rapid Strep Screen Today Z13.9 - Encounter for screening, unspecified Medications: New amoxicillin 500 mg PO BID 10 tabs 0RF 5 days J01.00 - Acute maxillary sinusitis, unspecified Coding Level of Care Code Est Pt Level 3 (27877) Diagnoses Acute non-recurrent maxillary sinusitis J01.00 Sinusitis location: maxillary Recurrence: non-recurrent
== END 2023-03-30 08:54 | disposition home or self-care (01) ==
PROVIDERS: PCP Internal Medicine; Visit Provider Nurse Practitioner Family
DX: J01.00 Acute maxillary sinusitis, unspecified (principal); J02.9 Acute pharyngitis, unspecified
CPT/HCPCS: 87880; 99213

== ENCOUNTER 2023-06-10 10:35 | Outpatient (REF) | payer BC, SELFPAY ==
--- NOTE | ~2023-06-10 | XR_ITS ---
EXAMINATION: XR CHEST CLINICAL INFORMATION: Questionable pneumonia, cough COMPARISON: 01/20/2021 TECHNIQUE: 2 views of the chest were obtained. FINDINGS: Lungs are clear but hyperinflated with flattening of the diaphragm. No evidence of nodules infiltrates or pleural effusion. Cardiomediastinal silhouette is normal. XR/XR chest 2V IMPRESSION: Emphysematous changes. No active cardiopulmonary disease
== END 2023-06-10 10:36 | disposition home or self-care (01) ==
LOC: HO.HMGCX 10:35
PROVIDERS: PCP Internal Medicine; Visit Provider Internal Medicine
DX: J18.9 Pneumonia, unspecified organism (principal)
CPT/HCPCS: 71046

== ENCOUNTER 2023-06-10 18:40 | Emergency (ER) | payer BC, SELFPAY ==
[2023-06-10 18:42] VITALS: BP 189/95; PULSE 84; RESP 18; TEMP 36.6; O2SAT 97; BMI 42.7
--- NOTE | 2023-06-10 18:44 | ED_ITS ---
HPI - General Adult General Chief complaint: Allergic Reaction Stated complaint: med reaction, referred by PCP Time Seen by Provider: 06/10/23 19:59 Source: patient and family (patient's daughter) Mode of arrival: ambulatory Limitations: no limitations History of Present Illness HPI narrative: Patient is a 62 year old assigned female at with a history of asthma and COVID-19 infection in 04/2023 presenting to the emergency department today with a possible reaction to Levaquin. Patient states that she has been coughing consistently for 3 weeks. Patient states that she was initially given amoxicillin and prednisone, got better, finished the prednisone, and got worse. Patient states that her provider then prescribed her Levaquin which she took her first dose of today. Patient states that when she took it, she began to have numbness and itching in her mouth and on the center of her tongue. Patient states that she immediately drank a lot of water and the symptoms are starting to resolve. Patient denies any dizziness, lightheadedness, abdominal pain, nausea, vomiting, fever, chills, blurry vision, double vision, loss of vision, chest pain, back pain, night sweats, pain with urination, increased urinary frequency, increased urinary urgency, blood in her urine or stool, syncope or a near syncopal episode, recent trauma or falls, bowel incontinence, bladder incontinence, bowel retention, bladder retention, or any other complaints at this time. Onset (ago): minute(s) Relieving factors: none Exacerbating factors: none Associated symptoms: denies other symptoms Treatments prior to arrival: other (water intake) Related Data Home Medications Medication Instructions Recorded Confirmed albuterol sulfate 90 mcg/actuation 1 puff PO Q4H PRN Wheezing 01/20/21 01/20/21 aerosol inhaler magnesium aspartate-potassium 1 cap PO DAILY 01/20/21 01/20/21 aspartate 250 mg-250 mg capsule thyroid (pork) 15 mg tablet 1 tab PO QAM 01/20/21 01/20/21 ([place] Thyroid) thyroid (pork) 30 mg tablet 1 tab PO QAM 01/20/21 01/20/21 ([place] Thyroid) Previous Rx's Medication Instructions Recorded amoxicillin 500 mg tablet 500 mg PO BID 5 days #10 tabs 03/30/23 doxycycline hyclate 100 mg tablet 100 mg PO BID 7 days #14 tabs 06/10/23 prednisone 20 mg tablet 20 mg PO DAILY 12 days #26 tabs 06/10/23 Allergies Allergy/AdvReac Type Severity Reaction Status Date / Time pecan nut Allergy Unknown ITCHY Verified 03/30/23 08:33 THROAT walnut Allergy Unknown ITCHY Verified 03/30/23 08:33 THROAT erythromycin base AdvReac Intermediate VOMITING Verified 03/30/23 08:33 [Erythromycin Base] Review of Systems Constitutional: Constitutional: Reports no additional constitutional complaints, Denies chills, Denies fever(s) and Denies night sweats Eyes: Eyes: Reports no additional eye complaints, Denies blurry vision, Denies change in vision, Denies diplopia, Denies eye discharge, Denies loss of vision and Denies eye pain ENT: Denies dizziness Comments: mouth and tongue itchiness Cardiovascular: Cardiovascular: Reports no additional cardiovascular complaints, Denies chest pain, Denies lightheadedness, Denies Loss of Consciousness and Denies dyspnea Respiratory: Respiratory: Reports no additional respiratory complaints and Denies dyspnea Gastrointestinal: Gastrointestinal: Reports no additional gastrointestinal complaints, Denies abdominal pain, Denies melena, Denies hematochezia, Denies change in bowel habits and Denies change in stool character Genitourinary: Genitourinary: Denies hematuria, Denies urinary frequency, Denies dysuria, Denies urinary incontinence, Denies urinary hesitancy and Denies urinary urgency Musculoskeletal: Musculoskeletal: Reports no additional musculoskeletal complaints, Denies numbness and Denies tingling Neurologic: Denies dizziness, Denies loss of vision, Denies numbness and Denies tingling Psychiatric: Psychiatric: Reports no additional psychiatric complaints Endocrine: Endocrine: Reports no additional endocrine complaints Hematologic/Lymphatic: Hematologic/Lymphatic: Reports no additional hematologic/lymphatic complaints Allergic/Immunologic: Allergic/Immunologic: Reports no additional allergic/immunologic complaints PMFSH Past Medical History Attestation statement: The following information was validated with the patient. (all information validated with the patient's daughter) Source: old records reviewed, obtained from family (patient's daughter provided additional history and confirmed the history provided by the patient.) and nursing notes reviewed Medical History Hypothyroid Asthma Social History Social History Alcohol intake: never Patient Tobacco Use Status: Never used Tobacco Smoked in Last 30 Days: No Use of substances other than those prescribed or required for medical reasons: No Advance Directives: No Advance Directives Information Provided: No Physical Exam ED Vital Signs: Vital Signs - 24 hr 06/10/23 18:42 06/10/23 20:59 Temperature 97.8 F 98 F Pulse Rate 84 80 Respiratory Rate 18 16 Blood Pressure 189/95 H 128/68 Pulse Oximetry 97 98 Oxygen Delivery Method Room Air Room Air BMI result Body Mass Index 42.7 Const General: cooperative, no acute distress, alert and awake Nutritional Appearance: well nourished Orientation/consciousness: patient oriented x3 Limitations: no limitations HENMT Head: Yes normal to inspection and Yes atraumatic Ears: hearing grossly normal bilaterally and external ears normal General nose exam: Normal external nose present, no nasal discharge noted and no epistaxis Face and sinus: Yes normal facial exam, No abrasion and No laceration Mouth: Normal oral and palatal mucosa present, no drooling and no muffled voice Eyes General: appearance normal, both eyes and all related structures Periorbital: periorbital findings normal Eyelids: Yes eyelids normal Conjunctivae: conjunctivae normal Pupils: Equal, round and reactive pupils present EOM: EOMs intact bilaterally Neck Neck: Yes normal visual inspection, Yes full ROM and Yes no lymphadenopathy Chest Chest palpation & inspection: normal inspection of the chest Resp Effort & Inspection: normal respiratory effort and able to speak in complete sentences GI Inspection: Yes normal to inspection Neuro General: patient oriented x3 and moves all extremities Cranial nerves: Yes Equal, round and reactive pupils present Cognition (Neuro): normal cognition Motor exam (neuro): 5/5 motor strength present throughout Sensory Exam: Normal double simultaneous stimulation for sensation Coordination: [id number] test normal Extrem General: Yes normal to inspection, Yes full ROM and Yes capillary refill normal Psych Appearance: grossly normal Mental Status: mental status grossly normal Affect: normal affect Attitude: cooperative Thought process: Normal thought process present Thought content: Normal thought content present Insight: Good insight present (Psych) Course Course Course Narrative: RME- 62 year old female presents for evaluation of allergic reaction. She took Levaquin for the first time around 13:30 and reports abdominal pain, dry mouth, tingling, itchy skin, and tongue numbness Medical Decision Making Medical Decision Making MDM Narrative: Patient is a 62 year old assigned female at with a history of asthma presenting to the emergency department today with an adverse reaction to levaquin. Patient's physical exam was unremarkable. I explained my physical exam findings to the patient and the patient's daughter. I answered all questions asked by the patient and the patient's daughter. Given the patient's adverse reaction, I recommended the patient stop the levaquin. Given patient's worsening of symptoms after cessation of prednisone and the patient's history of asthma, will restart a burst and taper of prednisone and switch the antibiotic to doxycycline. Given the length of the patient's symptoms, her history of asthma, and her recent COVID-19 infection, I recommended the patient follow up with a stenotype machine operator. I stressed the importance of the patient taking her medication as prescribed. I stressed the importance of the patient following up with her primary care provider. I stressed the importance of the patient returning to the emergency department immediately if her symptoms were to worsen or if she were to develop any dizziness, shortness of breath, difficulty breathing, chest pain, blurry vision, loss of vision, nausea, vomiting, abdominal pain, fever, chills, back pain, or any other complaints. Patient and the patient's daughter verbalized agreement and understanding with this treatment plan and discharge. Differential Diagnosis Differential Diagnoses: The differential diagnosis associated with the presentation includes Adverse reaction to medication Allergic reaction to medication Asthma exacerbation Admission/Observation Consideration of admission/observation: Escalation of care including admission/observation considered Patient would have been admitted to the hospital had her work up had any findings where hospital admission was appropriate and her clinical presentation warranted hospital admission. Prescription Management I considered prescription management with: Antibiotic (patient prescribed a ntibiotic to replace antibiotic I recommended to discontinue.) Discharge Plan Discharge Clinical Impression: Adverse reaction to drug, Asthma Patient Disposition: Home, Self-Care Instructions: Asthma (DC), Antibiotic Medication Allergy (ED) Additional Instructions: Follow up with your primary care provider and a stenotype machine operator. Return to the emergency department immediately if your symptoms worsen or if you develop any dizziness, shortness of breath, difficulty breathing, chest pain, blurry vision, loss of vision, nausea, vomiting, abdominal pain, fever, chills, back pain, or any other complaints. Prescriptions: New prednisone 20 mg tablet 20 mg PO DAILY 12 Days Qty: 26 0RF Rx Instructions: Take 3 tablets for 5 days THEN; Take 2 tablets for 4 days THEN; Take 1 tablet for 3 days doxycycline hyclate 100 mg tablet 100 mg PO BID 7 Days Qty: 14 0RF No Action magnesium, potassium aspartate [Potassium, Magnesium Aspartat] 250-250 mg Capsule 1 cap PO DAILY albuterol sulfate 90 mcg/actuation HFA aerosol inhaler 1 puff PO Q4H PRN (Reason: Wheezing) thyroid (pork) [[place] Thyroid] 15 mg tablet 1 tab PO QAM thyroid (pork) [[place] Thyroid] 30 mg tablet 1 tab PO QAM amoxicillin 500 mg tablet 500 mg PO BID 5 Days Qty: 10 0RF Referrals: Stone Chen MD [Primary Care Provider] - Ken Stock MD [Physician] - (Call to establish and follow up with a stenotype machine operator. ) Stand Alone Forms: Work/School Release Interventions: ED Discharge Assessment Last Done: 06/10/23 20:58 Discharge Date/Time: 06/10/23 20:58 Print Language: French
[2023-06-10 20:59] VITALS: BP 128/68; PULSE 80; RESP 16; TEMP 36.6; O2SAT 98
== END 2023-06-10 20:58 | disposition home or self-care (01) ==
PROVIDERS: Emergency Provider Emergency Medicine; PCP Internal Medicine
DX: R20.0 Anesthesia of skin (principal); L29.9 Pruritus, unspecified; T36.8X5A Adverse effect of other systemic antibiotics, initial encounter; Y92.9 Unspecified place or not applicable; J45.909 Unspecified asthma, uncomplicated
CPT/HCPCS: 99283; 99284

== ENCOUNTER 2023-07-26 09:15 | Outpatient (AMB) | payer BC, SELFPAY ==
[2023-07-26 09:16] VITALS: BP 130/68; PULSE 79; O2SAT 97; BMI 42.4
--- NOTE | 2023-07-26 09:16 | MHC.OFFVIS ---
Intake Vital Signs 07/26/23 09:16 Height 5 ft 6 in Weight 263 lb BMI 42.4 BP 130/68 Blood Pressure Location Lt brachial Position Sitting Pulse 79 Pulse Oximetry (%) 97 Oxygen Delivery Method Room Air Intake Visit Reasons: Asthma Systems Applications Programming Lead Required: No Hot Plate Plywood Press Offbearer: Hot Plate Plywood Press Offbearer offered & declined Accompanied by: Self / Same As Patient Allergies pecan nut Allergy (Unknown, Verified 07/26/23 09:24) ITCHY THROAT walnut Allergy (Unknown, Verified 07/26/23 09:24) ITCHY THROAT erythromycin base [Erythromycin Base] Adverse Reaction (Intermediate, Verified 07/26/23 09:24) VOMITING levaquin Allergy (Severe, Uncoded 07/26/23 09:52) Wheezing Medication List - Last Reconciled 07/26/23 by Desi Armando LPN albuterol sulfate 90 mcg/actuation 1 puff PO Q4H PRN fluticasone furoate-vilanterol 200-25 mcg/dose (Breo Ellipta) 1 inh inhalation Q24H magnesium, potassium aspartate 250-250 mg 1 cap PO DAILY thyroid (pork) ([place] Thyroid) 1 tab PO QAM thyroid (pork) ([place] Thyroid) 1 tab PO QAM HPI Asthma HPI Details Jaqui is a pleasant 62 year old female, former minimal smoker, quit 30 years ago, with underlying childhoodasthma, HTN and hypothyroidism. She was referred by PCP for pulmonary evaluation. She reports recurrent URI infections since having COVID this past fall. She notes having COVID 4 times, never requiring hospitalizations. In April she reports having bronchitis prescribed prednisone and amoxicillin with moderate improvement in symptoms. Her symptoms persisted and was prescribed levaquin, unfortunately developed an allergic reaction. Respiratory panel negative. CXR revealed emphysematous changes otherwise negative for acute changes. She reports feeling back to baseline with persistent hoarseness and dyspnea with moderate exertion, but denies cough, wheezing, or chest tightness. She feels that her symptoms are well controlled with Breo and albuterol PRN. She reports significant post nasal drip, not using any nasal sprays. 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 She reports mild seasonal allergies, will defer allergy testing at this time. She denies any pertinent family history. She reports GERD symptoms are infrequent. [facility] Medical History (Updated 07/27/23 @ 13:47 by Lee Ann Hunt NP) Hypothyroid Asthma Social History (Updated 07/26/23 @ 09:28 by Desi Armando LPN) Alcohol intake: never Patient Tobacco Use Status: Former Tobacco user Cigarettes Per Day: 3 Years Smoked: approx 5/ Quit 30 yrs ago. Review of Systems Const Denies chills, Denies excessive sweating, Denies fever(s), Denies headache(s) and Denies night sweats Eyes Denies dry eyes, Denies irritation and Denies itchy eyes ENT Reports Normal hearing present, Denies headache(s), Denies nasal congestion, Denies nasal discharge and Denies post nasal drip Card Denies chest pain, Denies chest pain at rest, Denies chest pain with activity, Denies claudication, Denies leg edema, Denies orthopnea and Denies paroxysmal nocturnal dyspnea Resp Denies chest congestion, Denies cough, Denies excessive phlegm production, Denies pain on inspiration, Denies pain with cough, Denies stridor and Denies wheezing Musc Denies myalgias Neuro Reports Normal hearing present and Denies headache(s) Endo Denies excessive sweating Luis/Lymph Denies lymphadenopathy Aller/Immun Denies itchy eyes, Denies seasonal rhinorrhea and Denies wheezing Physical Exam Vital Signs: Last Vital Signs Pulse 79 07/26/23 09:16 BP 130/68 07/26/23 09:16 Pulse Ox 97 07/26/23 09:16 Oxygen Delivery Method Room Air 07/26/23 09:16 BMI result Body Mass Index 42.4 Const General: cooperative, healthy appearing, comfortable, no acute distress, well developed and alert Nutritional Appearance: obese Orientation/consciousness: patient oriented x3 Limitations: no limitations HEENT Head: Yes normal to inspection, Yes normocephalic and Yes atraumatic Ears: hearing grossly normal bilaterally and external ears normal Eyes General: appearance normal, both eyes and all related structures Eyelids: Yes eyelids normal Sclerae: sclerae normal EOM: EOMs intact bilaterally Neck Neck: Yes normal visual inspection and Yes no lymphadenopathy Lymphatic: no lymphadenopathy noted Chest Chest palpation & inspection: normal inspection of the chest Resp Effort & Inspection: normal respiratory effort, able to speak in complete sentences, no audible wheezes, no cough, no stridor, not tachypneic, no tripod positioning and no use of accessory muscles Auscultation: clear to auscultation bilaterally Cardio Jugular venous distension: no JVD Rate: regular rate Rhythm: regular rhythm Skin Other: warm, dry General skin exam: no rashes or lesions noted Neuro General: patient oriented x3 Cranial nerves: Yes Normal hearing present Cognition (Neuro): normal cognition Gait exam (Neuro): Normal gait present Extrem General: Yes normal to inspection, Yes capillary refill normal, Yes no clubbing, cyanosis or edema and Yes no pedal edema Psych Appearance: grossly normal and well kempt Speech and movement: Normal speech and movement present and Clear speech present Affect: normal affect Attitude: cooperative Thought process: Normal thought process present Thought content: Normal thought content present Insight: Good insight present (Psych) Judgement: Good judgement present (Psych) Results Reviewed Results Reviewed: [address] [address] [address] Scan Report Signed Patient: Jaqui Law MR#: [id number] : 1960 Acct:[id number] Age/Sex: 60 / F ADM Date: 01/20/21 Loc: HO.ED Attending Dr: Ordering Physician: Pushpa Howard DO Date of Service: 01/20/21 Procedure(s): CT chest wo con Accession Number(s): [id number] cc: Pushpa Howard DO~ EXAMINATION: CT CHEST WITHOUT CONTRAST CLINICAL INFORMATION: Dyspnea COMPARISON: Previous chest x-ray from earlier the same day TECHNIQUE: Multidetector volumetric CT imaging of the chest was done. Axial MIP volume rendering provided. Sagittal and coronal reformatted images were obtained. This CT examination was performed using dose optimization techniques as appropriate, variously including the following: *Automated exposure control *Adjustment of mA and/or kV according to patient size (this includes techniques or standardized protocols for targeted exams where dose is matched to indication/reason for exam; i.e. extremities or head) *Use of iterative reconstruction technique DLP: 407 mGy-cm FINDINGS: SOIL CONSERVATION TECHNICIAN: Unremarkable LUNGS: There are small bilateral calcified pulmonary nodules. The largest measures 3 mm in the right lower lobe axial image 333 series 5. There is subsegmental atelectasis in both lower lobes. MEDIASTINUM: The mediastinum is normal. PLEURA: There is no pleural effusion. No pleural mass or thickening. AXILLA: No lymphadenopathy. UPPER ABDOMEN: There is a small air-fluid level posterior to the proximal stomach. This measures 3.2 x 3.4 cm. Appearance is questionable for a gastric diverticulum. Images through the upper abdomen are otherwise unremarkable. OSSEOUS STRUCTURES: There are degenerative changes of the spine. CT/CT chest wo con IMPRESSION: Small calcified pulmonary nodules probably representing calcified granulomas. Mild subsegmental atelectasis at the lung bases. No evidence of pneumonia. Small air-fluid level behind the stomach. This may represent a gastric diverticulum. If there is abdominal pain, possible abscess or perforation should be excluded and additional abdominal imaging with oral and IV contrast would be recommended Dictated By: Adriana Minaya MD Signed By: <Electronically signed by Adriana Minaya MD in OV> 01/20/21 1638 DD/ 1600 TD/TT: Lamination Inspector: [facility] [address] [place] [address] [place] [address] XRay Report Signed Patient: Jaqui Law MR#: [id number] : 1960 Acct:[id number] Age/Sex: 62 / F ADM Date: 06/10/23 Loc: HO.HMGCX Attending Dr: Stone Chen MD Ordering Physician: Stone Chen MD Date of Service: 06/10/23 Procedure(s): XR chest 2V Accession Number(s): [id number] cc: Stone Chen MD~ EXAMINATION: XR CHEST CLINICAL INFORMATION: Questionable pneumonia, cough COMPARISON: 01/20/2021 TECHNIQUE: 2 views of the chest were obtained. FINDINGS: Lungs are clear but hyperinflated with flattening of the diaphragm. No evidence of nodules infiltrates or pleural effusion. Cardiomediastinal silhouette is normal. XR/XR chest 2V IMPRESSION: Emphysematous changes. No active cardiopulmonary disease Dictated By: Starr Lui MD Signed By: <Electronically signed by Starr Lui MD in OV> 06/10/23 1250 DD/ 1042 TD/TT: Lamination Inspector: Assessment & Plan Assessment & Plan (1) Asthma: Code(s): J45.909 - Unspecified asthma, uncomplicated (2) Environmental allergies: Code(s): Z91.09 - Other allergy status, other than to drugs and biological substances (3) Hoarseness: Code(s): R49.0 - Dysphonia (4) Pulmonary nodule: Code(s): R91.1 - Solitary pulmonary nodule Plan Jaqui presents for evaluation of persistent hoarseness and dyspnea on exertion. She denies cough, wheezing or chest tightness. Will send for PFT to evaluate. She would like to hold of on allergy testing at this time. Advised to use ipratrioium for post nasal drip. Prior CT from 2020 revealed multiple pulmonary nodules and recent CXR revealed emphysematous changes, however minimal smoker. Will send for CT to assess stability of nodules and degree of emphysema. All questions were answered and patient is in agreement of plan. Will follow up to review results or sooner if needed. Orders: Orders CT chest wo IV con Today R91.1 - Solitary pulmonary nodule, R93.89 - Abnormal findings on diagnostic imaging of other specified body structures Medications: New ipratropium bromide administer into each nostril 2 sprays intranasal BID 30 mL 3RF Coding Level of Care Code New Pt Level 4 (77679) Diagnoses Asthma J45.909 Environmental allergies Z91.09 Hoarseness R49.0 Pulmonary nodule R91.1
== END 2023-07-26 09:58 | disposition home or self-care (01) ==
PROVIDERS: PCP Internal Medicine; Referring Provider Internal Medicine; Visit Provider Nurse Practitioner Family
DX: J45.909 Unspecified asthma, uncomplicated (principal); Z91.09 Other allergy status, other than to drugs and biological substances; R49.0 Dysphonia; R91.1 Solitary pulmonary nodule
CPT/HCPCS: 99204

== ENCOUNTER → 2023-07-26 09:15 | Outpatient (BNVA) | payer BC, SELFPAY | PROVIDERS: PCP Internal Medicine; Referring Provider Internal Medicine; Visit Provider Nurse Practitioner Family ==

== ENCOUNTER 2023-10-03 10:34 | Outpatient (REF) | payer BC, SELFPAY ==
--- NOTE | ~2023-10-03 | CT_ITS ---
EXAMINATION: CT CHEST WITHOUT CONTRAST CLINICAL INFORMATION: Solitary pulmonary nodule. COMPARISON: 01/20/2021 TECHNIQUE: Multidetector volumetric CT imaging of the chest was done. Axial MIP volume rendering provided. Sagittal and coronal reformatted images were obtained. This CT examination was performed using dose optimization techniques as appropriate, variously including the following: *Automated exposure control *Adjustment of mA and/or kV according to patient size (this includes techniques or standardized protocols for targeted exams where dose is matched to indication/reason for exam; i.e. extremities or head) *Use of iterative reconstruction technique DLP: 249 mGy-cm FINDINGS: LUNGS: No focal consolidation. No suspicious pulmonary nodule. Central airways are patent. MEDIASTINUM: Imaged thyroid gland is heterogeneous. No mediastinal or hilar lymphadenopathy. Great vessels are of normal caliber. Heart size is normal. No pericardial effusion. CORONARY ARTERY CALCIFICATION: Moderate. PLEURA: No pleural effusion. AXILLA: No axillary lymphadenopathy. UPPER ABDOMEN: Gastric diverticulum. OSSEOUS STRUCTURES: No destructive bone lesions. CT/CT chest wo IV con IMPRESSION: No suspicious pulmonary nodule. No acute intrathoracic abnormality.
== END 2023-10-03 10:35 | disposition home or self-care (01) ==
LOC: HO.CT 10:34
PROVIDERS: PCP Internal Medicine; Visit Provider Nurse Practitioner Family
DX: R91.1 Solitary pulmonary nodule (principal); R93.89 Abnormal findings on diagnostic imaging of other specified body structures
CPT/HCPCS: 71250

== ENCOUNTER 2023-10-07 09:42 | Outpatient (AMB) | payer BC, SELFPAY ==
--- NOTE | 2023-10-07 09:45 | A.OFFVIS_ITS ---
Vital Signs 10/07/23 09:46 Height 5 ft 6 in Weight 263 lb BMI 42.4 BP 128/74 Blood Pressure Location Rt radial Position Sitting Pulse 78 Pulse Source Pulse Oximeter Pulse Oximetry (%) 97 Oxygen Delivery Method Room Air Intake Visit Reasons: Asthma Allergies pecan nut Allergy (Unknown, Verified 10/07/23 09:50) ITCHY THROAT walnut Allergy (Unknown, Verified 10/07/23 09:50) ITCHY THROAT erythromycin base [Erythromycin Base] Adverse Reaction (Intermediate, Verified 10/07/23 09:50) VOMITING levaquin Allergy (Severe, Uncoded 10/07/23 09:50) Wheezing HPI HPI Asthma: Details: Jaqui is a pleasant 63 year old female, former minimal smoker, quit 30 years ago, with underlying childhoodasthma, HTN and hypothyroidism. She reports recurrent URI infections since having COVID this past fall. She notes having COVID 4 times, never requiring hospitalizations. In April she reports having bronchitis prescribed prednisone and amoxicillin with moderate improvement in symptoms. She reported feeling back to baseline with persistent hoarseness and dyspnea with moderate exertion. She was switched to Breo at the last visit and reports her symptoms are well controlled, requiring albuterol infrequently. She denies any respiratory symptoms today and presents to review chest CT results. [facility] Medical History (Updated 07/27/23 @ 13:47 by Lee Ann Hunt NP) Hypothyroid Asthma Social History Alcohol intake: never Patient Tobacco Use Status: Former Tobacco user Cigarettes Per Day: 3 Years Smoked: approx 5/ Quit 30 yrs ago. Review of Systems Const Denies chills, Denies excessive sweating, Denies fever(s), Denies headache(s) and Denies night sweats Eyes Denies dry eyes, Denies irritation and Denies itchy eyes ENT Reports Normal hearing present, Denies headache(s), Denies nasal congestion, Denies nasal discharge, Denies post nasal drip and Denies sore throat Card Denies chest pain, Denies chest pain at rest, Denies chest pain with activity, Denies claudication, Denies leg edema, Denies dyspnea, Denies dyspnea on exertion, Denies orthopnea and Denies paroxysmal nocturnal dyspnea Resp Denies chest congestion, Denies cough, Denies excessive phlegm production, Denies pain on inspiration, Denies pain with cough, Denies dyspnea, Denies dyspnea on exertion, Denies stridor and Denies wheezing Musc Denies myalgias Neuro Reports Normal hearing present and Denies headache(s) Endo Denies excessive sweating Luis/Lymph Denies lymphadenopathy Aller/Immun Denies itchy eyes, Denies seasonal rhinorrhea and Denies wheezing Physical Exam Vital Signs: Last Vital Signs Pulse 78 10/07/23 09:46 BP 128/74 10/07/23 09:46 Pulse Ox 97 10/07/23 09:46 Oxygen Delivery Method Room Air 10/07/23 09:46 BMI result Body Mass Index 42.4 Const General: cooperative, healthy appearing, comfortable, no acute distress, well developed and alert Nutritional Appearance: obese Orientation/consciousness: patient oriented x3 Limitations: no limitations HEENT Head: Yes normal to inspection, Yes normocephalic and Yes atraumatic Ears: hearing grossly normal bilaterally and external ears normal Eyes General: appearance normal, both eyes and all related structures Eyelids: Yes eyelids normal Sclerae: sclerae normal EOM: EOMs intact bilaterally Neck Neck: Yes normal visual inspection and Yes no lymphadenopathy Lymphatic: no lymphadenopathy noted Chest Chest palpation & inspection: normal inspection of the chest Resp Effort & Inspection: normal respiratory effort, able to speak in complete sentences, no audible wheezes, no cough, no stridor, not tachypneic, no tripod positioning and no use of accessory muscles Auscultation: clear to auscultation bilaterally Cardio Jugular venous distension: no JVD Rate: regular rate Rhythm: regular rhythm Skin Other: warm, dry General skin exam: no rashes or lesions noted Neuro General: patient oriented x3 Cranial nerves: Yes Normal hearing present Cognition (Neuro): normal cognition Gait exam (Neuro): Normal gait present Extrem General: Yes normal to inspection, Yes capillary refill normal, Yes no clubbing, cyanosis or edema and Yes no pedal edema Psych Appearance: grossly normal and well kempt Speech and movement: Normal speech and movement present and Clear speech present Affect: normal affect Attitude: cooperative Thought process: Normal thought process present Thought content: Normal thought content present Insight: Good insight present (Psych) Judgement: Good judgement present (Psych) Assessment & Plan Assessment & Plan (1) Asthma: Code(s): J45.909 - Unspecified asthma, uncomplicated Category: Medical (2) Environmental allergies: Code(s): Z91.09 - Other allergy status, other than to drugs and biological substances Category: Medical (3) Pulmonary nodule: Code(s): R91.1 - Solitary pulmonary nodule Category: Medical Plan Jaqui reports good control of respiratory symptoms with Breo advised to continue. Discussed decreasing to Breo 100 mcg but she would like to hold off at this time. Prior CT from 2020 revealed multiple pulmonary nodules and recent CXR revealed emphysematous changes, however minimal smoker. She was sent for chest CT which was unremarkable per report however there appears to be some question of pleural plaques. Will repeat chest CT in one year. All questions were answered and patient is in agreement of plan. Will follow up in 3- 6 months or sooner if needed. Coding Level of Care Code Est Pt Level 4 (91962) Diagnoses Asthma J45.909 Environmental allergies Z91.09 Pulmonary nodule R91.1
[2023-10-07 09:46] VITALS: BP 128/74; PULSE 78; O2SAT 97; BMI 42.4
== END 2023-10-07 10:24 | disposition home or self-care (01) ==
PROVIDERS: PCP Internal Medicine; Visit Provider Nurse Practitioner Family
DX: J45.909 Unspecified asthma, uncomplicated (principal); Z91.09 Other allergy status, other than to drugs and biological substances; R91.1 Solitary pulmonary nodule
CPT/HCPCS: 99214

== ENCOUNTER → 2023-10-07 09:42 | Outpatient (BNVA) | payer BC, SELFPAY | PROVIDERS: PCP Internal Medicine; Visit Provider Nurse Practitioner Family ==

== ENCOUNTER 2023-10-11 10:55 | Outpatient (REF) | payer BC, SELFPAY ==
[2023-10-11 11:00] LABS: MANUAL DIFF FLAG NO
[2023-10-11 11:17] LABS: Appearance Urine Clear; Color Urine Yellow; Glucose Urine UA Negative (Negative); Leukocyte Esterase Urine Small (1+) (Negative); Nitrite Urine Negative (Negative); UMIC TRIGGER UACC YES; Urine Blood Moderate (2+) (Negative); Urine Ketones Trace mg/dL (Negative); Urine Protein Trace mg/dL (Neg-Trace)
[2023-10-11 11:27] LABS: Basophils Absolute Auto 0.1 X10*3/uL (0.0-0.2); Basophils Percent Auto 0.5 % (0-2); Eosinophils Absolute Auto 0.2 X10*3/uL (0.0-0.4); Eosinophils Percent Auto 1.9 % (0-4); Hematocrit 44.3 % (37.0-47.0); Hemoglobin 14.2 g/dl (12.0-16.0); Imm Gran Abs Auto 0.03 X10*3/uL (0.00-0.03); Imm Gran Pct Auto 0.3 % (0.0-0.4); Lymphocytes Absolute Auto 1.7 X10*3/uL (1.2-4.9); Lymphocytes Percent Auto 18.6 % (20-40); Mean Corpuscular HGB Conc 32.1 g/dl (31.0-35.0); Mean Corpuscular Hemoglobin 29.5 pg (27.0-33.0); Mean Corpuscular Volume 91.9 fL (80.0-98.0); Mean Platelet Volume 9.9 fL (9.4-12.3); Monocytes Absolute Auto 0.7 X10*3/uL (0.1-1.2); Monocytes Percent Auto 7.3 % (2-11); Neutrophils Absolute Auto 6.7 x10*3/uL (2.0-8.3); Neutrophils Percent Auto 71.4 % (45-73); Platelet Count 300 X10*3/uL (160-400); Red Blood Count 4.82 X10*6/uL (4.20-5.50); Red Cell Distribution Width 12.7 % (11.0-16.0); White Blood Count 9.4 X10*3/uL (4.8-10.8)
[2023-10-11 11:43] LABS: Alanine Aminotransferase 19 U/L (0-31); Albumin Level 3.8 g/dL (3.5-5.0); Alkaline Phosphatase 75 U/L (39-117); Anion Gap 14 (12-20); Aspartate Amino Transferase 17 U/L (5-31); Bilirubin Total 0.3 mg/dL (0.0-1.0); Blood Urea Nitrogen 15 mg/dL (9-16); Calcium 9.1 mg/dL (8.4-10.2); Carbon Dioxide 28 mmol/L (22-29); Chloride 105 mmol/L (96-108); Cholesterol 186 mg/dL (<200); Estimated Glomerular Filt Rate > 60; Glucose Random 112 mg/dL (60-115); HDL Cholesterol 44 mg/dL (>40); LDL Cholesterol Calculated 118 mg/dL (<100); Potassium 4.7 mmol/L (3.3-5.1); Sodium 142 mmol/L (135-145); Triglycerides 124 mg/dL (<150)
[2023-10-11 11:47] LABS: Estimated Average Glucose 108 mg/dL; Hemoglobin A1c % 5.4 % (<6.0)
[2023-10-11 11:58] LABS: TSH reflex Free T4 2.78 uIU/mL (0.32-4.0)
[2023-10-11 12:00] LABS: Bacteria Urine None Seen (None Seen); Hyaline Casts Urine 0-2 /LPF (0-2); RBC Urine >20 /HPF (0-2); UACC Culture Trigger YES; WBC Urine 0-5 /HPF (0-5)
[2023-10-11 12:10] LABS: Creatinine Urine 213.45 mg/dL; Microalbum/Creatinine Ratio Ur 8.4 ug/mg cr (<30)
== END 2023-10-11 10:56 | disposition home or self-care (01) ==
LOC: HO.LNP 10:55
PROVIDERS: Visit Provider Internal Medicine
DX: Z00.00 Encounter for general adult medical examination without abnormal findings (principal); I10 Essential (primary) hypertension; R73.09 Other abnormal glucose; Z87.448 Personal history of other diseases of urinary system; E03.9 Hypothyroidism, unspecified; D72.828 Other elevated white blood cell count
CPT/HCPCS: 80053; 80061; 81001; 82043; 82570; 83036; 84443; 85025; 87086

== ENCOUNTER 2023-11-15 11:28 | Outpatient (REF) | payer BC, SELFPAY ==
[2023-11-15 12:32] LABS: Appearance Urine Clear; Color Urine Yellow; Glucose Urine UA Negative (Negative); Leukocyte Esterase Urine Small (1+) (Negative); Nitrite Urine Negative (Negative); PH 6.5 (5.0-9.0); UMIC TRIGGER UACC YES; Urine Blood Small (1+) (Negative); Urine Ketones Negative (Negative); Urine Protein Negative (Neg-Trace)
[2023-11-15 12:38] LABS: Bacteria Urine None Seen (None Seen); Hyaline Casts Urine 0-2 /LPF (0-2); Squamous Epithelial Cell Urine 0-2 /HPF (0-2); UACC Culture Trigger YES; WBC Urine 0-5 /HPF (0-5)
== END 2023-11-15 11:29 | disposition home or self-care (01) ==
LOC: HO.LNP 11:28
PROVIDERS: Visit Provider Internal Medicine
DX: N39.0 Urinary tract infection, site not specified (principal)
CPT/HCPCS: 81001; 87086

== ENCOUNTER 2024-03-23 15:14 | Outpatient (REF) | payer BC, SELFPAY ==
[2024-03-23 10:23] VITALS: PULSE 85; O2SAT 95
--- NOTE | 2024-03-23 15:17 | PFT_ITS ---
Indication: Asthma Spirometry [FEV1 to FVC 63%; FEV1 2.13 L; FVC 3.4 L. No significant response to bronchodilators noted. Maximum voluntary ventilation 81% predicted] Lung Volumes [Total lung capacity 94% predicted; expiratory reserve volume 37% predicted] Diffusion Capacity [DLCO 92% predicted] Comparisons [none] Interpretation [There is an obstructive ventilatory defect consistent with mild COPD. No significant response to bronchodilators noted. Low normal maximum voluntary ventilation. Lung volumes are normal except for decrease in the expiratory reserve volume secondary to an elevated BMI. Diffusing capacity is within normal limits. Clinical correlation warranted.] MTDD
== END 2024-03-23 15:15 | disposition home or self-care (01) ==
LOC: HO.RESP 15:14
PROVIDERS: PCP Internal Medicine; Visit Provider Nurse Practitioner Family
DX: J45.909 Unspecified asthma, uncomplicated (principal)
CPT/HCPCS: 94010; 94640; 94727; 94729

== ENCOUNTER → 2024-03-23 15:17 | Outpatient (BNV) | payer BC, SELFPAY | PROVIDERS: PCP Internal Medicine; Visit Provider Hospitalist | DX: J45.909 Unspecified asthma, uncomplicated (principal) | CPT/HCPCS: 94060; 94727; 94729 ==

== ENCOUNTER 2024-04-06 10:00 | Outpatient (AMB) | payer OTHER, MEDICARE, SELFPAY ==
[2024-04-06 10:09] VITALS: BP 120/76; PULSE 74; O2SAT 96; BMI 42.7
--- NOTE | 2024-04-06 10:09 | A.OFFVIS_ITS ---
Vital Signs 04/06/24 10:09 Height 5 ft 6 in Weight 264 lb 6 oz BMI 42.7 BP 120/76 Blood Pressure Location Lt radial Position Sitting Pulse 74 Pulse Source Pulse Oximeter Pulse Oximetry (%) 96 Oxygen Delivery Method Room Air Intake Visit Reasons: Asthma Allergies pecan nut Allergy (Unknown, Verified 04/06/24 10:12) ITCHY THROAT walnut Allergy (Unknown, Verified 04/06/24 10:12) ITCHY THROAT erythromycin base [Erythromycin Base] Adverse Reaction (Intermediate, Verified 04/06/24 10:12) VOMITING levaquin Allergy (Severe, Uncoded 04/06/24 10:12) Wheezing HPI HPI Asthma: Details: Jaqui is a pleasant 63 year old female, former minimal smoker, quit 30 years ago, with underlying childhood asthma, HTN and hypothyroidism. She has been well controlled on Breo 100 mcg and albuterol MDI, using very infrequently. She denies any respiratory symptoms at this time. She denies any visits to urgent care or hospitalizations since the last visit. Today she presents to review PFT results. [facility] Medical History (Updated 04/06/24 @ 10:57 by Lee Ann Hunt NP) Hypothyroid Asthma Social History Alcohol intake: never Patient Tobacco Use Status: Former Tobacco user Cigarettes Per Day: 3 Years Smoked: approx 5/ Quit 30 yrs ago. Review of Systems Const Denies chills, Denies excessive sweating, Denies fever(s), Denies headache(s) and Denies night sweats Eyes Denies dry eyes, Denies irritation and Denies itchy eyes ENT Reports Normal hearing present, Denies headache(s), Denies nasal congestion, Denies nasal discharge, Denies post nasal drip and Denies sore throat Card Denies chest pain, Denies chest pain at rest, Denies chest pain with activity, Denies claudication, Denies leg edema, Denies dyspnea, Denies dyspnea on exertion, Denies orthopnea and Denies paroxysmal nocturnal dyspnea Resp Denies chest congestion, Denies cough, Denies excessive phlegm production, Denies pain on inspiration, Denies pain with cough, Denies dyspnea, Denies dyspnea on exertion, Denies stridor and Denies wheezing Musc Denies myalgias Neuro Reports Normal hearing present and Denies headache(s) Endo Denies excessive sweating Luis/Lymph Denies lymphadenopathy Aller/Immun Denies itchy eyes, Denies seasonal rhinorrhea and Denies wheezing Physical Exam Vital Signs: Last Vital Signs Pulse 74 04/06/24 10:09 BP 120/76 04/06/24 10:09 Pulse Ox 96 04/06/24 10:09 Oxygen Delivery Method Room Air 04/06/24 10:09 BMI result Body Mass Index 42.7 Const General: cooperative, healthy appearing, comfortable, no acute distress, well developed and alert Nutritional Appearance: obese Orientation/consciousness: patient oriented x3 Limitations: no limitations HEENT Head: Yes normal to inspection, Yes normocephalic and Yes atraumatic Ears: hearing grossly normal bilaterally and external ears normal Eyes General: appearance normal, both eyes and all related structures Eyelids: Yes eyelids normal Sclerae: sclerae normal EOM: EOMs intact bilaterally Neck Neck: Yes normal visual inspection and Yes no lymphadenopathy Lymphatic: no lymphadenopathy noted Chest Chest palpation & inspection: normal inspection of the chest Resp Effort & Inspection: normal respiratory effort, able to speak in complete sentences, no audible wheezes, no cough, no stridor, not tachypneic, no tripod positioning and no use of accessory muscles Auscultation: clear to auscultation bilaterally Cardio Jugular venous distension: no JVD Rate: regular rate Rhythm: regular rhythm Skin Other: warm, dry General skin exam: no rashes or lesions noted Neuro General: patient oriented x3 Cranial nerves: Yes Normal hearing present Cognition (Neuro): normal cognition Gait exam (Neuro): Normal gait present Extrem General: Yes normal to inspection, Yes capillary refill normal, Yes no clubbing, cyanosis or edema and Yes no pedal edema Psych Appearance: grossly normal and well kempt Speech and movement: Normal speech and movement present and Clear speech present Affect: normal affect Attitude: cooperative Thought process: Normal thought process present Thought content: Normal thought content present Insight: Good insight present (Psych) Judgement: Good judgement present (Psych) Assessment & Plan Assessment & Plan (1) Asthma-COPD overlap syndrome: Code(s): J44.89 - Other specified chronic obstructive pulmonary disease Category: Medical (2) Asthma: Code(s): J45.909 - Unspecified asthma, uncomplicated Category: Medical (3) Pulmonary nodule: Code(s): R91.1 - Solitary pulmonary nodule Category: Medical Plan At this time patient reports good control of respiratory symptoms with Breo and albuterol MDI, advised to continue. Repeat chest CT ordered for next summer to evaluate pulmonary nodules/plaques. Reviewed PFT which revealed mild obstructive defect with no significant response to bronchodilators, normal lung volumes and normal DLCO, consistent with asthma COPD overlap syndrome. All questions were answered and patient is in agreement of plan. Will follow up in 6 months or sooner if needed. Coding Level of Care Code Est Pt Level 4 (79268) Diagnoses Asthma-COPD overlap syndrome J44.89 Asthma J45.909 Pulmonary nodule R91.1
== END 2024-04-06 10:44 | disposition home or self-care (01) ==
PROVIDERS: PCP Internal Medicine; Visit Provider Nurse Practitioner Family
DX: J44.89 Other specified chronic obstructive pulmonary disease (principal); J45.909 Unspecified asthma, uncomplicated; R91.1 Solitary pulmonary nodule
CPT/HCPCS: 99214

== ENCOUNTER 2024-10-01 08:14 | Outpatient (REF) | payer OTHER, MEDICARE, SELFPAY ==
--- OUTSIDE RECORDS SUMMARY | 2024-06-15 02:00 | XMS_ITS ---
Author Organization Stone Chen MD Address [address] [place] [phone] Care Team Providers Care Catalyst Concentration Operator Name Role Phone Stone Chen Primary Care Provider REASON FOR VISIT Note for work Encounters Encounter Location Date Provider Diagnosis Stone Chen MD [address] [place] [address] [address] [place], [place] [phone] 06/15/2024 Stone Chen Plan Of Treatment Next Appt Details Provider Name:Stone Brunson iekarson, 10/16/2024 07:00:00 AM, [address] [place] [address], [address], [place], [place], [phone], Provider Name:Stone fernandez, 10/23/2024 08:30:00 AM, [address] [place] [address], [address], [place], [place], [phone], Progress Notes * Jaqui DAVIS EDOB :1960 (63 yo F)Acc No.[id number]:06/15/2024 Patient: Rula Jaqui NIXON :1960 A ge:63 Y S ex:Female Address:[facility] [place] [address] * true * Date: Generated for Printi ng/Faxing/eTransmitting on: 0 10/01/2024 08:20 AM EDT
--- NOTE | ~2024-10-01 | CT_ITS ---
CLINICAL HISTORY: R91.1 - Solitary pulmonary nodule CT chest without contrast Comparison: CT/NE/SR - CT CHEST WITHOUT IV CONTRAST - 10/03/23 10:52 EDT Findings: No mediastinal mass or lymphadenopathy. No cardiomegaly. Moderate calcified coronary artery disease. Normal size aorta with trace calcified atherosclerotic disease. Calcified granuloma. Solid noncalcified pulmonary nodules measure up to 2 mm, unchanged. Subsegmental atelectasis versus linear scarring at the lung bases. No pneumothorax or pleural effusion. No acute osseous or soft tissue abnormality. No acute pathology in the imaged portion of the upper abdomen. Gastric diverticulum. Impression: No acute findings. Stable examination. No follow up is required. This document has been electronically signed by: Rosario Crump MD on 10/02/2024 13:40:34
== END 2024-10-01 08:15 | disposition home or self-care (01) ==
LOC: HO.CT 08:14
PROVIDERS: PCP Internal Medicine; Visit Provider Nurse Practitioner Family
DX: R91.1 Solitary pulmonary nodule (principal)
CPT/HCPCS: 71250

== ENCOUNTER → 2024-10-01 08:15 | Outpatient (BNV) | payer OTHER, MEDICARE, SELFPAY | PROVIDERS: PCP Internal Medicine; Visit Provider Radiology Diagnostic Radiology | DX: R91.1 Solitary pulmonary nodule (principal) | CPT/HCPCS: 71250 ==

== ENCOUNTER 2024-10-05 09:34 | Outpatient (AMB) | payer OTHER, MEDICARE, SELFPAY ==
--- OUTSIDE RECORDS SUMMARY | 2024-06-15 02:00 | XMS_ITS ---
Author Organization Stone Chen MD Address [address] [place] [phone] Care Team Providers Care Spring Manufacturing Set Up Technician Name Role Phone Stone Chen Primary Care Provider REASON FOR VISIT Note for work Encounters Encounter Location Date Provider Diagnosis Stone Chen MD [address] [place] [address] [address] [place], [place] [phone] 06/15/2024 Stone Chen Plan Of Treatment Next Appt Details Provider Name:Stone fernandez, 10/16/2024 07:00:00 AM, [address] [place] [address], [address], [place], [place], [phone], Provider Name:Stone fernandez, 10/23/2024 08:30:00 AM, [address] [place] [address], [address], [place], [place], [phone], Progress Notes * Jaqui DAVIS EDOB :1960 (63 yo F)Acc No.[id number]:06/15/2024 Patient: Rula Jaqui NIXON :1960 A ge:63 Y S ex:Female Address:[facility] [place] [address] * true * Date: Generated for Printi ng/Faxing/eTransmitting on: 0 10/05/2024 10:00 AM EDT
--- NOTE | 2024-10-02 15:23 | MHC.OFFVIS ---
Intake Visit Reasons: Asthma Allergies pecan nut Allergy (Unknown, Verified 04/06/24 10:12) ITCHY THROAT walnut Allergy (Unknown, Verified 04/06/24 10:12) ITCHY THROAT erythromycin base (Erythromycin Base) Adverse Reaction (Intermediate, Verified 04/06/24 10:12) VOMITING levaquin Allergy (Severe, Uncoded 04/06/24 10:12) Wheezing PFSH Medical History (Updated 04/06/24 @ 10:57 by Lee Ann Hunt NP) Hypothyroid Asthma Social History Alcohol intake: never Patient Tobacco Use Status: Former Tobacco user Cigarettes Per Day: 3 Years Smoked: approx 5/ Quit 30 yrs ago. 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
--- NOTE | 2024-10-05 09:38 | MHC.OFFVIS ---
Vital Signs 10/05/24 09:41 Height 5 ft 6 in Weight 257 lb 2 oz BMI 41.5 BP 132/78 Blood Pressure Location Lt radial Position Sitting Pulse 71 Pulse Source Pulse Oximeter Pulse Oximetry (%) 96 Oxygen Delivery Method Room Air Intake Visit Reasons: Asthma Allergies pecan nut Allergy (Unknown, Verified 10/05/24 09:43) ITCHY THROAT walnut Allergy (Unknown, Verified 10/05/24 09:43) ITCHY THROAT erythromycin base (Erythromycin Base) Adverse Reaction (Intermediate, Verified 10/05/24 09:43) VOMITING levaquin Allergy (Severe, Uncoded 10/05/24 09:43) Wheezing HPI HPI Asthma: Details: Jaqui is a pleasant 64 year old female, former minimal smoker, quit 30 years ago, with underlying childhood asthma, HTN and hypothyroidism. She has been well controlled on Breo 100 mcg, rarely requiring albuterol MDI/neb. She denies any respiratory symptoms at this time. She does note being treated for bronchitis in May by PCP with complete resolution, otherwise denies any visits to urgent care or hospitalizations since the last visit. Today she presents to review CT chest results. [facility] Medical History (Updated 04/06/24 @ 10:57 by Lee Ann Hunt NP) Hypothyroid Asthma Social History Alcohol intake: never Patient Tobacco Use Status: Former Tobacco user Cigarettes Per Day: 3 Years Smoked: approx 5/ Quit 30 yrs ago. Review of Systems Const Denies chills, Denies excessive sweating, Denies fever(s), Denies headache(s) and Denies night sweats Eyes Denies dry eyes, Denies irritation and Denies itchy eyes ENT Reports Normal hearing present, Denies headache(s), Denies nasal congestion, Denies nasal discharge, Denies post nasal drip and Denies sore throat Card Denies chest pain, Denies chest pain at rest, Denies chest pain with activity, Denies claudication, Denies leg edema, Denies dyspnea, Denies dyspnea on exertion, Denies orthopnea and Denies paroxysmal nocturnal dyspnea Resp Denies chest congestion, Denies cough, Denies excessive phlegm production, Denies pain on inspiration, Denies pain with cough, Denies dyspnea, Denies dyspnea on exertion, Denies stridor and Denies wheezing Musc Denies myalgias Neuro Reports Normal hearing present and Denies headache(s) Endo Denies excessive sweating Luis/Lymph Denies lymphadenopathy Aller/Immun Denies itchy eyes, Denies seasonal rhinorrhea and Denies wheezing Physical Exam Vital Signs: Last Vital Signs Pulse 71 10/05/24 09:41 BP 132/78 10/05/24 09:41 Pulse Ox 96 10/05/24 09:41 Oxygen Delivery Method Room Air 10/05/24 09:41 BMI result Body Mass Index 41.5 Const General: cooperative, healthy appearing, comfortable, no acute distress, well developed and alert Nutritional Appearance: obese Orientation/consciousness: patient oriented x3 Limitations: no limitations HEENT Head: Yes normal to inspection, Yes normocephalic and Yes atraumatic Ears: hearing grossly normal bilaterally and external ears normal Eyes General: appearance normal, both eyes and all related structures Eyelids: Yes eyelids normal Sclerae: sclerae normal EOM: EOMs intact bilaterally Neck Neck: Yes normal visual inspection and Yes no lymphadenopathy Lymphatic: no lymphadenopathy noted Chest Chest palpation & inspection: normal inspection of the chest Resp Effort & Inspection: normal respiratory effort, able to speak in complete sentences, no audible wheezes, no cough, no stridor, not tachypneic, no tripod positioning and no use of accessory muscles Auscultation: clear to auscultation bilaterally Cardio Jugular venous distension: no JVD Rate: regular rate Rhythm: regular rhythm Skin Other: warm, dry General skin exam: no rashes or lesions noted Neuro General: patient oriented x3 Cranial nerves: Yes Normal hearing present Cognition (Neuro): normal cognition Gait exam (Neuro): Normal gait present Extrem General: Yes normal to inspection, Yes capillary refill normal, Yes no clubbing, cyanosis or edema and Yes no pedal edema Psych Appearance: grossly normal and well kempt Speech and movement: Normal speech and movement present and Clear speech present Affect: normal affect Attitude: cooperative Thought process: Normal thought process present Thought content: Normal thought content present Insight: Good insight present (Psych) Judgement: Good judgement present (Psych) Results Reviewed Results Reviewed: [address] [address] [address] Scan Report Signed Patient: Jaqui Law MR#: [id number] : 1960 Acct:[id number] Age/Sex: 64 / F ADM Date: 10/01/24 Loc: HO.CT Attending Dr: Lee Ann Hunt NP Ordering Physician: Lee Ann Hunt NP Date of Service: 10/01/24 Procedure(s): CT chest wo IV con Accession Number(s): [id number] cc: Stone Chen MD; Lee Ann Hunt NP~ Report Number: [id number]: Total DLP = 251.00 mGy-cm CLINICAL HISTORY: R91.1 - Solitary pulmonary nodule CT chest without contrast Comparison: CT/SD/SR - CT CHEST WITHOUT IV CONTRAST - 10/03/23 10:52 EDT Findings: No mediastinal mass or lymphadenopathy. No cardiomegaly. Moderate calcified coronary artery disease. Normal size aorta with trace calcified atherosclerotic disease. Calcified granuloma. Solid noncalcified pulmonary nodules measure up to 2 mm, unchanged. Subsegmental atelectasis versus linear scarring at the lung bases. No pneumothorax or pleural effusion. No acute osseous or soft tissue abnormality. No acute pathology in the imaged portion of the upper abdomen. Gastric diverticulum. Impression: No acute findings. Stable examination. No follow up is required. This document has been electronically signed by: Rosario Crump MD on 10/02/2024 13:40:34 Dictated By: Rosario Mak MD Signed By: <Electronically signed by Rosario Mak MD in OV> 10/02/24 1340 DD/ 1340 TD/TT: 10/02/24 1340 Assessment & Plan Assessment & Plan (1) Asthma-COPD overlap syndrome: Code(s): J44.89 - Other specified chronic obstructive pulmonary disease Category: Medical (2) Asthma: Code(s): J45.909 - Unspecified asthma, uncomplicated Category: Medical (3) Pulmonary nodule: Code(s): R91.1 - Solitary pulmonary nodule Category: Medical Plan At this time patient reports good control of respiratory symptoms with Breo and albuterol MDI, advised to continue. She is aware to call if symptoms become less controlled. Reviewed chest CT which revealed stable findings, no need for further imaging at this time. All questions were answered and patient is in agreement of plan. Will follow up in 6-9 months or sooner if needed. Medications: Refilled fluticasone furoate-vilanterol 100-25 mcg/dose (Breo Ellipta) 1 inh inhalation DAILY 60 ea 6RF Coding Level of Care Code Est Pt Level 3 (96145) Diagnoses Asthma-COPD overlap syndrome J44.89 Asthma J45.909 Pulmonary nodule R91.1
[2024-10-05 09:41] VITALS: BP 132/78; PULSE 71; O2SAT 96; BMI 41.5
== END 2024-10-05 10:00 | disposition home or self-care (01) ==
LOC: HO.HPSW 09:35
PROVIDERS: PCP Internal Medicine; Visit Provider Nurse Practitioner Family
DX: J44.89 Other specified chronic obstructive pulmonary disease (principal); J45.909 Unspecified asthma, uncomplicated; R91.1 Solitary pulmonary nodule
CPT/HCPCS: 99213

== ENCOUNTER 2024-10-16 10:22 | Outpatient (REF) | payer OTHER, MEDICARE, SELFPAY ==
--- OUTSIDE RECORDS SUMMARY | 2024-06-15 02:00 | XMS_ITS ---
Author Organization Stone Chen MD Address [address] [place], [place] [phone] Care Team Providers Care Elder Counselor Name Role Phone Stone Chen Primary Care Provider [phone] REASON FOR VISIT Note for work Encounters Encounter Location Date Provider Diagnosis Stone Chen MD [address] [facility] [address] [place], [place] [phone] 06/15/2024 Stone Chen Plan Of Treatment Next Appt Details Provider Name:Stone Brunson ier, 10/23/2024 08:30:00 AM, [address], [address], [place], [place], [phone], Progress Notes * Jaqui DAVIS EDOB :1960 (63 yo F)Acc No.[id number]:06/15/2024 Patient: Rula Jaqui NIXON :1960 A ge:63 Y S ex:Female Address:[address] [place] [phone] * true * Date: Generated for Printi ng/Faxing/eTransmitting on: 0 10/16/2024 11:14 AM EDT
[2024-10-16 10:28] LABS: MANUAL DIFF FLAG NO
[2024-10-16 10:32] LABS: Hematocrit 41.2 % (37.0-47.0); Hemoglobin 13.5 g/dl (12.0-16.0); Imm Gran Abs Auto 0.03 X10*3/uL (0.00-0.03); Imm Gran Pct Auto 0.4 % (0.0-0.4); Lymphocytes Absolute Auto 1.5 X10*3/uL (1.2-4.9); Mean Corpuscular HGB Conc 32.8 g/dl (31.0-35.0); Mean Corpuscular Hemoglobin 29.0 pg (27.0-33.0); Mean Corpuscular Volume 88.6 fL (80.0-98.0); NRBC Abs Auto 0.000 X10*3/uL (0.0-0.012); NRBC Pct Auto 0.0 /100WBC (0.0-0.2); Platelet Count 283 X10*3/uL (160-400); Red Blood Count 4.65 X10*6/uL (4.20-5.50); White Blood Count 8.4 X10*3/uL (4.8-10.8)
[2024-10-16 10:38] LABS: Appearance Urine Clear; Glucose Urine UA Negative (Negative); PH 6.0 (5.0-9.0); Specific Gravity - Urine 1.020 (1.005-1.025); UMIC TRIGGER UACC YES
[2024-10-16 10:47] LABS: Hemoglobin A1C 135.5254 umol/L; Total Hemoglobin (HGBA1C) 3589.1240 umol/L
[2024-10-16 10:58] LABS: Microalbum/Creatinine Ratio Ur 8.2 ug/mg cr (<30)
[2024-10-16 11:06] LABS: Alanine Aminotransferase 26 U/L (0-31); Albumin Level 4.0 g/dL (3.5-5.0); Alkaline Phosphatase 72 U/L (39-117); Anion Gap 12 (12-20); Aspartate Amino Transferase 27 U/L (5-31); Blood Urea Nitrogen 19 mg/dL (9-16); Calcium 9.1 mg/dL (8.4-10.2); Carbon Dioxide 29 mmol/L (22-29); Chloride 105 mmol/L (96-108); Cholesterol 183 mg/dL (<200); Estimated Glomerular Filt Rate 51; HDL Cholesterol 37 mg/dL (>40); Potassium 4.9 mmol/L (3.3-5.1); Sodium 141 mmol/L (135-145); Total Protein 6.8 g/dL (6.5-8.0); Triglycerides 158 mg/dL (<150)
--- OUTSIDE RECORDS SUMMARY | 2024-10-16 11:15 | XMS_ITS | Patient Health Record ---
Author Organization [facility] Address [address] [place] [address] Care Team Providers Care Shingle Weaver Name Role Phone Gustavo ORTIZ, Stone Primary Care Provider Raffi Krause [phone] Allergies Allergen (clinical drug ingredient) Drug/Non Drug Allergy documented on EMR Reaction Allergy Type Onset Date Status prednisolone PrednisoLONE Unknown Drug Allergy A ctive Azithromycin Hydrogencitrate Unknown Drug Allergy Active hayfever (uncoded) Unknown Allergy A ctive Reason For Referral No Information Medications Medication SIG (Take, Route, Frequency, Duration) Notes Start Date End Date Status Potassium & Magnesium Aspartat Active Allergy Relief Activ e [place] Thyroid Activ e Probiotic Active Problems Problem Type SNOMED Code ICD Code Onset Dates Problem Status W/U Status Risk Notes Problem [id number] Encounter for screening for malignant neoplasm of colon (Z12.11) Active confirmed Problem Encounter for screening for malignant neoplasm of rectum (Z12.12) Active confirmed Problem [id number] Preprocedural examination (Z01.818) Active confirmed Plan Of Treatment Pending Test Test Name Order Date GI BIOPSY 10/08/2016 Future Test Test Name Order Date COLONOSCOPY 06/01/2016 Insurance Providers Payer Name Payer Address Payer Phone Subscriber Number Group Number Insured Name Patient Relationship to Insured Coverage Start Date Coverage End Date [facility] [address] [place], [place] [phone] [id number] Self - patient is the insured Medical (General) History Medical History History ICD Code Asthma--does not use anything regularly 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
== END 2024-10-16 10:23 | disposition home or self-care (01) ==
LOC: HO.LNP 10:22
PROVIDERS: Visit Provider Internal Medicine
DX: Z00.00 Encounter for general adult medical examination without abnormal findings (principal); I10 Essential (primary) hypertension; R73.09 Other abnormal glucose; E03.9 Hypothyroidism, unspecified
CPT/HCPCS: 80053; 80061; 81001; 82043; 82570; 83036; 84443; 85025

== ENCOUNTER 2025-04-05 09:47 | Outpatient (AMB) | payer OTHER, MEDICARE, SELFPAY ==
--- OUTSIDE RECORDS SUMMARY | 2024-01-23 06:00 | XMS_ITS ---
Author Organization Stone Chen MD Address [address] [place] [address] [place] [phone] Care Team Providers Care Shoe Reconditioner Name Role Phone Stone Chen Primary Care Provider REASON FOR VISIT RE: Patient Satisfaction Survey - 2023 Encounters Encounter Location Date Provider Diagnosis Stone Chen MD [address] [place] [address] [place] [id number] 01/23/2024 Stone Chen Plan Of Treatment Next Appt Details Provider Name:Stone fernandez, 05/28/2025 09:00:00 AM, [address] [place] [address], [address], [phone], Provider Name:Stone fernandez, 10/17/2025 08:00:00 AM, [address] [place] [address], [address], [phone], Provider Name:Stone fernandez, 10/24/2025 09:30:00 AM, [address] [place] [address], [address], [phone], Progress Notes * Jaqui DAVIS EDOB :1960 (63 yo F)Acc No.[id number]:01/23/2024 Patient: Rula kumarIgnaciomiJaqui :1960 A ge:63 Y S ex:Female Address:[address] [place], [place] [address] [address] * true * Date: Generated for Augustin madsen/Zoran/Rahel on: 06/06/2024 09:51 AM EST
--- OUTSIDE RECORDS SUMMARY | 2024-01-23 06:06 | XMS_ITS ---
Author Organization Stone Chen MD Address [address] [place] [address] [place] [phone] Care Team Providers Care Rn Orthopaedics Name Role Phone Stone Chen Primary Care Provider [phone] REASON FOR VISIT Vaccines Encounters Encounter Location Date Provider Diagnosis Stone Chen MD [address] [place] [address] [place] [phone] 01/23/2024 Stone Chen Plan Of Treatment Next Appt Details Provider Name:Stone fernandez, 05/28/2025 09:00:00 AM, [address] [place] [address], [address], [phone], Provider Name:Stone fernandez, 10/17/2025 08:00:00 AM, [address] [place] [address], [address], [phone], Provider Name:Stone fernandez, 10/24/2025 09:30:00 AM, [address] [place] [address], [address], [phone], Progress Notes * Jaqui DAVIS EDOB :1960 (63 yo F)Acc No.[id number]:01/23/2024 Patient: Rula Jaqui hodges Jerardo :1960 A ge:63 Y S ex:Female Address:[address] [place], [place] [address] [address] * true * Date: Generated for Printi ng/Faxing/eTransmitting on: 1 06/06/2024 09:52 AM EST
--- OUTSIDE RECORDS SUMMARY | 2024-04-16 03:00 | XMS_ITS ---
Author Organization Stone Chen MD Address [address] [place], [place] [id number] Care Team Providers Care Hot Metal Charger Name Role Phone Stone Chen Primary Care Provider Allergies Allergen (clinical drug ingredient) Drug/Non Drug Allergy documented on EMR Reaction Allergy Type Onset Date Status Levaquin Unknown Drug Allergy Active azithromycin azithromycin (uncoded) GI upset Allergy Active REASON FOR VISIT 6 month Medications Medication SIG (Take, Route, Frequency, Duration) Notes Start Date End Date Status Vitamin D (Cholecalciferol) 1000 UNIT 1 tablet Orally Once a day Not-Taking Allergy Relief 10 MG 1 tablet Orally Onc e a day Not-Taking Albuterol Sulfate HFA 108 (90 Base) MCG/ACT 1 puff as needed Inhalation every 4 hrs for 30 days 01/12/2021 Not-Taking Claritin 10 MG 1 tablet Orally Once a day Not-Taking Ventolin HFA 108 (90 Base) MCG/ACT INHALE 2 PUFFS BY MOUTH EVERY 4 TO 6 HOURS Active Multivitamins Orally Not-Ta monty Breo Ellipta 100-25 MCG/ACT INHALE 1 PUFF BY MOUTH EVERY DAILY FOR 30 DAYS Active Clune Thyroid 15 MG 15mg &30mg for a totalof 45mg Orally Once a day Active Flonase Allergy Relief 50 MCG/ACT 1 spray in each nostril Nasally Once a day for 30 day(s) Active Vital Signs Blood pressure systolic 154 mm Hg 04/16/19 25 Blood pressure diastolic 92 mm Hg 025 Height 66 in 04/16/2024 Weight 264 lbs 04/16/2024 BMI 42.61 kg/m2 04/16/2024 Encounters Encounter Location Date Provider Diagnosis Stone Chen MD [address] [place] [address] [place] [phone] 04/16/2024 Stone Chen Essential hypertension I10 and Asthmatic bronchitis, mild intermittent, uncomplicated J45.20 Assessments Encounter Date Diagnosis (ICD Code) Assessment Notes Treatment Notes Treatment Clinical Notes Section Notes 04/16/2024 Essential hypertension (ICD-10 - I10) gets better readings at home, will continue to monitor 04/16/2024 Asthmatic bronchitis, mild intermittent, uncomplicated (ICD-10 - J45.20) having good results. 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 ct chest was negative the [facility] treatment [facility] is repeating it next year Next Appt Details Provider Name:Stone fernandez, 05/28/2025 09:00:00 AM, [address] [place] [address], [address], [phone], Provider Name:Stone fernandez, 10/17/2025 08:00:00 AM, [address] [place] [address], [address], [phone], Provider Name:Stone fernandez, 10/24/2025 09:30:00 AM, [address] [place] [address], [address], [phone], Progress Notes * Jaqui DAVIS EDOB :1960 (63 yo F)Acc No.[id number]:04/16/2024 Progress Notes Patient: Jaqui Avitia Provider: Tess Chen MD :1960 A ge:63 Y S ex:Female Date:04/16/2024 Address:[address] [place] [id number] Subjective: * Chief Complaints: * 6 month * HPI: S ymptom(s): patient is A 63 yo female here for 6 month follow up visit, doing great. no wheezing. has not used her rescue inhaler since dec. * ROS: G eneral/Constitutional: Denies C hills. D enies F atigue. D enies F ever. D enies H eadache. E NT: Patient denies d ecreased sense of smell , any loss of taste , sore throat. D enies S ore throat. R espiratory: Denies C ough. D enies S hortness of breath at rest. D enies S hortness of breath with exertion. C ardiovascular: Denies C hest pain at rest. D enies C hest pain with exertion. D enies D izziness. D enies P alpitations. D enies S hortness of breath. G astrointestinal: Denies D iarrhea. D enies N ausea. M usculoskeletal: Patient denies m uscle aches. P eripheral Vascular: Patient denies r ed and blue toes. * Medical History: * Surgical History: * Hospitalization/Major Diagno stic Procedure: * Medications: T akingFlonase Allergy Relief 50 MCG/ACT Suspension 1 spray in each nostril Nasally Once a dayArmour Thyroid 15 MG Tablet 15mg &30mg for a totalof 45mg Orally Once a dayVentolin HFA 108 (90 Base) MCG/ACT Aerosol Solution INHALE 2 PUFFS BY MOUTH EVERY 4 TO 6 HOURS Breo Ellipta 100-25 MCG/ACT Aerosol Powder Breath Activated INHALE 1 PUFF BY MOUTH EVERY DAILY FOR 30 DAYS Taking Flonase Allergy Relief 50 MCG/ACT Suspension 1 spray in each nostril Nasally Once a dayTaking Clune Thyroid 15 MG Tablet 15mg &30mg for a totalof 45mg Orally Once a dayTaking Ventolin HFA 108 (90 Base) MCG/ACT Aerosol Solution INHALE 2 PUFFS BY MOUTH EVERY 4 TO 6 HOURS Taking Breo Ellipta 100-25 MCG/ACT Aerosol Powder Breath Activated INHALE 1 PUFF BY MOUTH EVERY DAILY FOR 30 DAYS Not-Taking/PRNAlbuterol Sulfate HFA 108 (90 Base) MCG/ACT Aerosol Solution 1 puff as needed Inhalation every 4 hrsAllergy Relief 10 MG Tablet 1 tablet Orally Once a dayVitamin D (Cholecalciferol) 1000 UNIT Tablet 1 tablet Orally Once a dayClaritin 10 MG Tablet 1 tablet Orally Once a dayMultivitamins Capsule Orally Medication List reviewed and reconciled with the patientNot-Taking/PRN Albuterol Sulfate HFA 108 (90 Base) MCG/ACT Aerosol Solution 1 puff as needed Inhalation every 4 hrsNot-Taking/PRN Allergy Relief 10 MG Tablet 1 tablet Orally Once a dayNot-Taking/PRN Vitamin D (Cholecalciferol) 1000 UNIT Tablet 1 tablet Orally Once a dayNot-Taking/PRN Claritin 10 MG Tablet 1 tablet Orally Once a dayNot- Taking/PRN Multivitamins Capsule Orally Medication List reviewed and reconciled with the patient * Allergies: a zithromycin: GI upsetLevaquinyes[Allergies Verified] Objective: * Vitals: H t: 66, Wt:264, BMI:42.61, BP:154/92, Repeat BP:160/88. * Examination: G eneral Examination: GENERAL APPEARANCE: a lert, well hydrated, in no distress.? HEAD: n ormocephalic. SKIN: g ood turgor. HEART: n o murmurs, rubs, gallops , regular rate and rhythm. LUNGS: n o wheezes, rales, rhonchi , good air movement , clear to auscultation bilaterally. Assessment: * Assessment: 1. E ssential hypertension - I10 2 . A sthmatic bronchitis, mild intermittent, uncomplicated - J45.20 Plan: * Treatment: 2. A sthmatic bronchitis, mild intermittent, uncomplicated Continue Ventolin HFA Aerosol Solution, 108 (90 Base) MCG/ACT, INHALE 2 PUFFS BY MOUTH EVERY 4 TO 6 HOURS; C ontinue Breo Ellipta Aerosol Powder Breath Activated, 100-25 MCG/ACT, INHALE 1 PUFF BY MOUTH EVERY DAILY FOR 30 DAYS. Notes: having good results. 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 no wheezing. has not used her rescue inhaler since sept Examination Category Sub-Category Detail Notes Category Not es General Examination GENERAL APPEARANCE: alert, w ell hydrated, in no distress HEAD: normocephalic HEART: no murmurs, rubs, ga llops , regular rate and rhythm LUNGS: no wheezes, rales, r honchi , good air movement , clear to auscultation bilaterally SKIN: good turgor
--- OUTSIDE RECORDS SUMMARY | 2024-06-01 02:36 | XMS_ITS ---
Author Organization Stone Chen MD Address [address] [facility] [address] [place] [phone] Care Team Providers Care Paedodontist Name Role Phone Stone Chen Primary Care Provider [phone] REASON FOR VISIT Bronchitis Encounters Encounter Location Date Provider Diagnosis Stone Chen MD [address] [place] [address] [place] [phone] 06/01/2024 Stone Chen Plan Of Treatment Next Appt Details Provider Name:Stone fernandez, 05/28/2025 09:00:00 AM, [address] [place] [address], [address] [place] [address], [phone], Provider Name:Stone fernandez, 10/17/2025 08:00:00 AM, [address] [place] [address], [address], [phone], Provider Name:Stone fernandez, 10/24/2025 09:30:00 AM, [address] [place] [address], [address], [phone], Progress Notes * Jaqui DAVIS EDOB :1960 (63 yo F)Acc No.[id number]:06/01/2024 Patient: Rula Jaqui NIXON :1960 A ge:63 Y S ex:Female Address:[address] [place], [place] [address] [address] * true * Date: Generated for Printi ng/Faxing/eTransmitting on: 1 06/06/2024 09:50 AM EST
--- OUTSIDE RECORDS SUMMARY | 2024-06-01 06:45 | XMS_ITS ---
Author Organization Stone Chen MD Address [address] [place], [place] [id number] Care Team Providers Care Clinical Research Assistant Name Role Phone Stone Chen Primary Care Provider Allergies Allergen (clinical drug ingredient) Drug/Non Drug Allergy documented on EMR Reaction Allergy Type Onset Date Status Levaquin Unknown Drug Allergy Active azithromycin azithromycin (uncoded) GI upset Allergy Active REASON FOR VISIT BRONCHITIS 2 WEEKS Video [phone] [phone], c/o chills fatigue fever was 101 yesterday, productive cough, SOB, congestion Tested 3 times for Covid within the last week all negative Medications Medication SIG (Take, Route, Frequency, Duration) Notes Start Date End Date Status Claritin 10 MG 1 tablet Orally Once a day Not-Taking Vitamin D (Cholecalciferol) 1000 UNIT 1 tablet Orally Once a day Not-Taking Albuterol Sulfate HFA 108 (90 Base) MCG/ACT 1 puff as needed Inhalation every 4 hrs for 30 days 01/12/2021 Not-Taking Breo Ellipta 100-25 MCG/ACT INHALE 1 PUFF BY MOUTH EVERY DAILY FOR 30 DAYS Active Allergy Relief 10 MG 1 tablet Orally Onc e a day Not-Taking Amoxicillin-Pot Clavulanate 875-125 MG 1 tablet Orally every 12 hrs for 10 days 06/01/2024 Active Flonase Allergy Relief 50 MCG/ACT 1 spray in each nostril Nasally Once a day for 30 day(s) Active predniSONE 10 MG 1 tablet with food o r milk Orally 4 tabs for 3 days,3tabs for 3 days, 2 tabs for 3 days, and 1 tab for 3 days for 14 days 06/01/2024 Active Ventolin HFA 108 (90 Base) MCG/ACT INHALE 2 PUFFS BY MOUTH EVERY 4 TO 6 HOURS Active [place] Thyroid 15 MG 15mg &30mg for a totalof 45mg Orally Once a day Active Multivitamins Orally Cande-Evan millan Vital Signs Blood pressure systolic 129 mm Hg 06/01/19 25 Blood pressure diastolic 79 mm Hg 025 Height 66 in 06/01/2024 Weight 260 lbs 06/01/2024 BMI 41.96 kg/m2 06/01/2024 weight at home is 260 BP 12 no temp today Encounters Encounter Location Date Provider Diagnosis Stone Chen MD [address] [place] [address] [place] [phone] 06/01/2024 Stone Chen Acute bronchitis due to other specified organisms J20.8 Assessments Encounter Date Diagnosis (ICD Code) Assessment Notes Treatment Notes Treatment Clinical Notes Section Notes 06/01/2024 Acute bronchitis due to other specified organisms (ICD-10 - J20.8) patient verbalized understanding of mediation and directions for use. Plan Of Treatment Medication Medication Name Sig Start Date Stop Date Notes Amoxicillin-Pot Clavulanate 875-125 MG 1 tablet Orally every 12 hrs for 10 days 06/01/2024 predniSONE 10 MG 1 tablet with food o r milk Orally 4 tabs for 3 days,3tabs for 3 days, 2 tabs for 3 days, and 1 tab for 3 days for 14 days 06/01/2024 Treatment Notes Assessment Notes Acute bronchitis due to othe r specified organisms patient verbalized understanding of mediation and directions for use. Next Appt Details Provider Name:Stone fernandez, 05/28/2025 09:00:00 AM, [address] [place] [address], [address], [phone], Provider Name:Stone fernandez, 10/17/2025 08:00:00 AM, [address] [place] [address], [address], [phone], Provider Name:Stone fernandez, 10/24/2025 09:30:00 AM, [address] [place] [address], [address], [phone], Progress Notes * Jaqui DAVIS EDOB :1960 (63 yo F)Acc No.[id number]:06/01/2024 Patient: Jaqui DUFF Provider: Tess Chen MD :1960 A ge:63 Y S ex:Female Date:06/01/2024 Address:[address] [place] [address], [id number] Subjective: * Chief Complaints: * B BROOKECHITIS 2 WEEKS Video [phone] [phone]/o chills fatigue fever was 101 yesterday, productive cough, SOB, congestion Tested 3 times for Covid within the last week all negative * HPI: S ymptom(s): Telehealth L ocation of provider rendering services: [address], [address], L ocation of patient: a t address listed in demographics for today's visit, P atient identification confirmed using: TOÑO Hernández ame, T elehealth method: T elephone only. Patient not visible to care provider., C onsent: P atient verbally consented to treatment, Patient verbally consented to billing insurance company, Patient informed of any privacy concerns related to method of visit, T otal time spend talking with patient (minutes) 1 6. patient is a 63 yo female video telehealth visit, here as an emergency . is getting sicker. fever yesterday. fever 101. * ROS: G eneral/Constitutional: Admits C hills. A dmits F atigue. A dmits F ever. D enies H eadache. E NT: Patient denies d ecreased sense of smell, any loss of taste, sore throat. D enies S ore throat. R espiratory: Admits C ough. D enies S hortness of breath at rest. A dmits S hortness of breath with exertion. A dmits S putum production. A dmits W heezing. G astrointestinal: Denies D iarrhea. D enies N ausea. M usculoskeletal: Patient denies m uscle aches. P eripheral Vascular: Patient denies r ed and blue toes. * Medical History: * Surgical History: * Hospitalization/Major Diagno stic Procedure: * Medications: T akingFlonase Allergy Relief 50 MCG/ACT Suspension 1 spray in each nostril Nasally Once a day [place] Thyroid 15 MG Tablet 15mg &30mg for a totalof 45mg Orally Once a day Ventolin HFA 108 (90 Base) MCG/ACT Aerosol Solution INHALE 2 PUFFS BY MOUTH EVERY 4 TO 6 HOURS Breo Ellipta 100-25 MCG/ACT Aerosol Powder Breath Activated INHALE 1 PUFF BY MOUTH EVERY DAILY FOR 30 DAYS Taking Flonase Allergy Relief 50 MCG/ACT Suspension 1 spray in each nostril Nasally Once a day Taking [place] Thyroid 15 MG Tablet 15mg &30mg for a totalof 45mg Orally Once a day Taking Ventolin HFA 108 (90 Base) MCG/ACT Aerosol Solution INHALE 2 PUFFS BY MOUTH EVERY 4 TO 6 HOURS Taking Breo Ellipta 100-25 MCG/ACT Aerosol Powder Breath Activated INHALE 1 PUFF BY MOUTH EVERY DAILY FOR 30 DAYS Not-Taking/PRNAlbuterol Sulfate HFA 108 (90 Base) MCG/ACT Aerosol Solution 1 puff as needed Inhalation every 4 hrs Allergy Relief 10 MG Tablet 1 tablet Orally Once a day Vitamin D (Cholecalciferol) 1000 UNIT Tablet 1 tablet Orally Once a day Claritin 10 MG Tablet 1 tablet Orally Once a day Multivitamins Capsule Orally Medication List reviewed and reconciled with the patientNot-Taking/PRN Albuterol Sulfate HFA 108 (90 Base) MCG/ACT Aerosol Solution 1 puff as needed Inhalation every 4 hrs Not-Taking/PRN Allergy Relief 10 MG Tablet 1 tablet Orally Once a day Not-Taking/PRN Vitamin D (Cholecalciferol) 1000 UNIT Tablet 1 tablet Orally Once a day Not-Taking/PRN Claritin 10 MG Tablet 1 tablet Orally Once a day Not- Taking/PRN Multivitamins Capsule Orally Medication List reviewed and reconciled with the patient * Allergies: a zithromycin: GI upsetLevaquinyes[Allergies Verified] Objective: * Vitals: H t: 66, Wt: 260, BMI:41.96, BP:129/79, Wt-k.94. weight at home is 260 BP 129/79 no temp today. * Examination: G eneral Examination: GENERAL APPEARANCE: a lert, well hydrated, in no distress.? Assessment: * Assessment: 1. A cute bronchitis due to other specified organisms - J20.8 (Primary) Plan: * Treatment: * Procedure Codes: * * Sign off status: Completed true * Provider: Tess Chen MD Date: 0 06/01/2024 Generated for Augustin madsen/Zoran/eTransmitting on: 1 06/06/2024 09:50 AM EST History and Physical Notes * HPI (History of Present Illness) Category Sub-Category Detail Notes Category Not es Symptom(s) Telehealth Location of [facility] ider rendering services:: [address], [address] patient is a 63 yo female video telehealth visit, here as an emergency . is getting sicker. fever yesterday. fever 101. Location of patient:: at address listed in demographics for today's visit Patient identification confirmed using:: Name, Telehealth method:: Telephone only. Pat ient not visible to care provider. Consent:: Patient verbally c onsented to treatment, Patient verbally consented to billing insurance company, Patient informed of any privacy concerns related to method of visit Total time spend talking with patient (m inutes): 16 Examination Category Sub-Category Detail Notes Category Not es General Examination GENERAL APPEARANCE: alert, w ell hydrated, in no distress
--- OUTSIDE RECORDS SUMMARY | 2024-06-07 07:45 | XMS_ITS ---
Author Organization Stone Chen MD Address [address] [place], [place] [id number] Care Team Providers Care Keyboarding Teacher Name Role Phone Stone Chen Primary Care Provider [phone] Allergies Allergen (clinical drug ingredient) Drug/Non Drug Allergy documented on EMR Reaction Allergy Type Onset Date Status Levaquin Unknown Drug Allergy Active azithromycin azithromycin (uncoded) GI upset Allergy Active REASON FOR VISIT DIFFICULTY W/ ASTHMA STILL, Video [phone] Medications Medication SIG (Take, Route, Frequency, Duration) Notes Start Date End Date Status Claritin 10 MG 1 tablet Orally Once a day Not-Taking Multivitamins Orally Not-Ta monty Vitamin D (Cholecalciferol) 1000 UNIT 1 tablet Orally Once a day Not-Taking Flonase Allergy Relief 50 MCG/ACT 1 spray in each nostril Nasally Once a day for 30 day(s) Active [place] Thyroid 15 MG 15mg &30mg for a totalof 45mg Orally Once a day Active Amoxicillin-Pot Clavulanate 875-125 MG 1 tablet Orally every 12 hrs for 10 days 06/01/2024 Active predniSONE 10 MG 1 tablet with food o r milk Orally 4 tabs for 3 days,3tabs for 3 days, 2 tabs for 3 days, and 1 tab for 3 days for 14 days 06/01/2024 Active Albuterol Sulfate HFA 108 (90 Base) MCG/ACT 1 puff as needed Inhalation every 4 hrs for 30 days 01/12/2021 Not-Taking Albuterol Sulfate (2.5 MG/3ML) 0.083% 3 mL as needed Inhalation every 6 hrs for 30 days 06/07/2024 Active Allergy Relief 10 MG 1 tablet Orally Onc e a day Not-Taking Ventolin HFA 108 (90 Base) MCG/ACT INHALE 2 PUFFS BY MOUTH EVERY 4 TO 6 HOURS Active Breo Ellipta 100-25 MCG/ACT INHALE 1 PUFF BY MOUTH EVERY DAILY FOR 30 DAYS Active Vital Signs Blood pressure systolic 126 mm Hg 06/07/19 25 Blood pressure diastolic 79 mm Hg 025 Height 66 in 06/07/2024 Weight 60 lbs 06/07/2024 BMI 9.68 kg/m2 06/07/2024 weight is 260 BP 126/79 at h ome no temp Encounters Encounter Location Date Provider Diagnosis Stone Chen MD [address] [place] [phone] 06/07/2024 Stone Chen Acute bronchitis due to other specified organisms J20.8 Assessments Encounter Date Diagnosis (ICD Code) Assessment Notes Treatment Notes Treatment Clinical Notes Section Notes 06/07/2024 Acute bronchitis due to other specified organisms (ICD-10 - J20.8) patient verbalized understanding of medication and directions for use Plan Of Treatment Medication Medication Name Sig Start Date Stop Date Notes Albuterol Sulfate (2.5 MG/3ML) 0.083% 3 mL as needed Inhalation every 6 hrs for 30 days 06/07/2024 Treatment Notes Assessment Notes Acute bronchitis due to othe r specified organisms patient verbalized understanding of medication and directions for use Next Appt Details Provider Name:Stone fernandez, 05/28/2025 09:00:00 AM, [address] [place] [address], [address], [phone], Provider Name:Stone fernandez, 10/17/2025 08:00:00 AM, [address] [place] [address], [address], [phone], Provider Name:Stone fernandez, 10/24/2025 09:30:00 AM, [address] [place] [address], [address], [phone], Progress Notes * Jaqui DAVIS EDOB :1960 (63 yo F)Acc No.[id number]:06/07/2024 Patient: Jaqui DUFF Provider: Tess Chen MD :1960 A ge:63 Y S ex:Female Date:06/07/2024 Address:[id number] Subjective: * Chief Complaints: * D IFFICULTY W/ ASTHMA STILLVideo [phone] * HPI: S ymptom(s): Telehealth L ocation of provider rendering services: [address], [address], L ocation of patient: a t address listed in demographics for today's visit, P atient identification confirmed using: TOÑO Hernández ame, T elehealth method: V ideo conference where patient is visible to the provider of care, C onsent: P atient verbally consented to treatment, Patient verbally consented to billing insurance company, Patient informed of any privacy concerns related to method of visit, T otal time spend talking with patient (minutes) 1 8. patient is a 63 yo female video telehealth visit, getting a little better but still having trouble breathing. has a nebulizer at home. * ROS: G eneral/Constitutional: Denies C hills. D enies F atigue. D enies F ever. A dmits H eadache. E NT: Patient denies d ecreased sense of smell, any loss of taste, sore throat. D enies S ore throat. R espiratory: Admits C ough. A dmits S hortness of breath at rest. A dmits S hortness of breath with exertion. D enies S putum production. G astrointestinal: Denies D iarrhea. D enies N ausea. M usculoskeletal: Patient denies m uscle aches. P eripheral Vascular: Patient denies r ed and blue toes. * Medical History: * Surgical History: * Hospitalization/Major Diagno stic Procedure: * Medications: T akingFlonase Allergy Relief 50 MCG/ACT Suspension 1 spray in each nostril Nasally Once a day [place] Thyroid 15 MG Tablet 15mg &30mg for a totalof 45mg Orally Once a day Ventolin HFA 108 (90 Base) MCG/ACT Aerosol Solution INHALE 2 PUFFS BY MOUTH EVERY 4 TO 6 HOURS Breo Ellipta 100-25 MCG/ACT Aerosol Powder Breath Activated INHALE 1 PUFF BY MOUTH EVERY DAILY FOR 30 DAYS Amoxicillin-Pot Clavulanate 875-125 MG Tablet 1 tablet Orally every 12 hrs predniSONE 10 MG Tablet 1 tablet with food or milk Orally 4 tabs for 3 days,3tabs for 3 days, 2 tabs for 3 days, and 1 tab for 3 days Taking Flonase Allergy Relief 50 MCG/ACT Suspension 1 spray in each nostril Nasally Once a day Taking [place] Thyroid 15 MG Tablet 15mg &30mg for a totalof 45mg Orally Once a day Taking Ventolin HFA 108 (90 Base) MCG/ACT Aerosol Solution INHALE 2 PUFFS BY MOUTH EVERY 4 TO 6 HOURS Taking Breo Ellipta 100-25 MCG/ACT Aerosol Powder Breath Activated INHALE 1 PUFF BY MOUTH EVERY DAILY FOR 30 DAYS Taking Amoxicillin-Pot Clavulanate 875-125 MG Tablet 1 tablet Orally every 12 hrs Taking predniSONE 10 MG Tablet 1 tablet with food or milk Orally 4 tabs for 3 days,3tabs for 3 days, 2 tabs for 3 days, and 1 tab for 3 days Not-Taking/PRNAlbuterol Sulfate HFA 108 (90 Base) MCG/ACT [...] 1 tablet Orally Once a day Not-Taking/PRN Multivitamins Capsule Orally Medication List reviewed and reconciled with the patient * Allergies: a zithromycin: GI upsetLevaquinyes[Allergies Verified] Objective: * Vitals: H t: 66, Wt: 60, BMI:9.68, BP:126/79, Wt-k.22. weight is 260 BP 126/79 at home no temp. * Examination: G eneral Examination: GENERAL APPEARANCE: a lert, well hydrated, in no distress with coughing. Assessment: * Assessment: 1. A cute bronchitis due to other specified organisms - J20.8 (Primary) Plan: * Treatment: * Procedure Codes: * * Sign off status: Completed true * Provider: Tess Chen MD Date: 0 06/07/2024 Generated for Augustin madsen/Zoran/Cynthiaransmcaridad on: 1 06/06/2024 09:51 AM EST History and Physical Notes * HPI (History of Present Illness) Category Sub-Category Detail Notes Category Not es Symptom(s) Telehealth Location of [facility] rendering services:: [address], [address] patient is a 63 yo female video telehealth visit, getting a little better but still having trouble breathing. has a nebulizer at home. Location of patient:: at address listed in demographics for today's visit Patient identification confirmed using:: Name, Telehealth method:: Video co nference where patient is visible to the provider of care Consent:: Patient verbally c onsented to treatment, Patient verbally consented to billing insurance company, Patient informed of any privacy concerns related to method of visit Total time spend talking with patient (m inutes): 18 Examination Category Sub-Category Detail Notes Category Not es General Examination GENERAL APPEARANCE: alert, w ell hydrated, in no distress with coughing
--- OUTSIDE RECORDS SUMMARY | 2024-06-15 01:00 | XMS_ITS ---
Author Organization Stone Chen MD Address [address] [place] [phone] Care Team Providers Care Glaze Wiper Name Role Phone Stone Chen Primary Care Provider REASON FOR VISIT Note for work Encounters Encounter Location Date Provider Diagnosis Stone Chen MD [address] [place] [address] [place] [phone] 06/15/2024 Stone Chen Plan Of Treatment Next Appt Details Provider Name:Stone fernandez, 05/28/2025 09:00:00 AM, [address] [place] [address], [address] [place] [address], [phone], Provider Name:Stone fernandez, 10/17/2025 08:00:00 AM, [address] [place] [address], [address] [place] [address], [phone], Provider Name:Stone fernandez, 10/24/2025 09:30:00 AM, [address] [place] [address], [address] [place] [address], [phone], Progress Notes * Jaqui DAVIS EDOB :1960 (63 yo F)Acc No.[id number]:06/15/2024 Patient: Rula SHEPPARDJaqui GARCIA Jerardo :1960 A ge:63 Y S ex:Female Address:[address] [place], [place] [address] [phone] * true * Date: Generated for Augustin madsen/Zoran/eTransmitting on: 1 06/06/2024 09:50 AM EST
--- OUTSIDE RECORDS SUMMARY | 2024-06-15 04:12 | XMS_ITS ---
Author Organization Stone Chen MD Address [address] [place] [phone] Care Team Providers Care Director Pharmaceutical Name Role Phone Stone Chen Primary Care Provider REASON FOR VISIT Work note Encounters Encounter Location Date Provider Diagnosis Stone Chen MD [address] [place] [address] [address] [place] [phone] 06/15/2024 Stone Chen Plan Of Treatment Next Appt Details Provider Name:Stone fernandez, 05/28/2025 09:00:00 AM, [address] [place] [address], [address] [place] [address], [phone], Provider Name:Stone fernandez, 10/17/2025 08:00:00 AM, [address] [place] [address], [address] [place] [address], [phone], Provider Name:Stone fernandez, 10/24/2025 09:30:00 AM, [address] [place] [address], [address] [place] [address], [phone], Progress Notes * Jaqui DAVIS EDOB :1960 (63 yo F)Acc No.[id number]:06/15/2024 Patient: Rula Jaqui NIXON Jerardo :1960 A ge:63 Y S ex:Female Address:[address] [place], [place] [address] [address] * true * Date: Generated for Augustin madsen/Zoran/eTransmitting on: 1 06/06/2024 09:51 AM EST
--- OUTSIDE RECORDS SUMMARY | 2024-10-16 02:00 | XMS_ITS ---
Author Organization Stone Chen MD Address [address] [place], [place] [id number] Care Team Providers Care Small Business Consultant Name Role Phone Stone Chen Primary Care Provider REASON FOR VISIT yearly fasting labs Encounters Encounter Location Date Provider Diagnosis Stone Chen MD [address] [place] [address] [address] [place], [place] [id number] 10/16/2024 Stone Chen Blood tests for routine general physical examination Z00.00 ; Essential hypertension I10 ; Prediabetes R73.09 and Acquired hypothyroidism E03.9 Assessments Encounter Date Diagnosis (ICD Code) Assessment Notes Treatment Notes Treatment Clinical Notes Section Notes 10/16/2024 Blood tests for routine general physical examination (ICD-10 - Z00.00) 10/16/2024 Essential hypertension (ICD-10 - I10) 10/16/2024 Prediabetes (ICD-10 - R73.09) 10/16/2024 Acquired hypothyroidism (ICD-10 - E03.9) Plan Of Treatment Pending Test Test Name Order Date Complete Blood Count Auto Diff Comprehensive [place]. Panel Fast Lipid Panel 10/16/2024 TSH reflex Free T4 10/16/2024 Microalbumin, Random 10/16/2024 Hemoglobin A1c 10/16/2024 UA ClnCatch+Micro w/rflx Cult 10/16/2024 Next Appt Details Provider Name:Stone fernandez, 05/28/2025 09:00:00 AM, [address] [place] [address], [address], [place], [place], [id number], Provider Name:Stone menesesr, 10/17/2025 08:00:00 AM, [address], [address], [place], [place], [phone], Provider Name:Stone Brunson ier, 10/24/2025 09:30:00 AM, [address], [address], [place], [id number], Progress Notes * Jaqui DAVIS EDOB :1960 (64 yo F)Acc No.[id number]:10/16/2024 Progress Note Patient: Jaqui DUFF Provider: Tess Chen MD :1960 A ge:64 Y S ex:Female Date:10/16/2024 Address:[address] [place], [place] [id number] Subjective: * Chief Complaints: * 1 . Yearly fasting labs. * Medical History: Objective: * Vitals: Assessment: * Assessment: 1. B lood tests for routine general physical examination - Z00.00 (Primary) 2 .?Essential hypertension - I10 3 . P rediabetes - R73.09 4 .?Acquired hypothyroidism - E03.9 Plan: * Treatment: 2. E ssential hypertension L AB: Complete Blood Count Auto Diff L AB: Comprehensive [place]. Panel Fast L AB: Lipid Panel L AB: TSH reflex Free T4 L AB: Microalbumin, Random L AB: Hemoglobin A1c L AB: UA ClnCatch+Micro w/rflx Cult 3. P rediabetes L AB: Complete Blood Count Auto Diff L AB: Comprehensive [place]. Panel Fast L AB: Lipid Panel L AB: TSH reflex Free T4 L AB: Microalbumin, Random L AB: Hemoglobin A1c L AB: UA ClnCatch+Micro w/rflx Cult 4. A cquired hypothyroidism L AB: Complete Blood Count Auto Diff L AB: Comprehensive [place]. Panel Fast L AB: Lipid Panel L AB: TSH reflex Free T4 L AB: Microalbumin, Random L AB: Hemoglobin A1c L AB: UA ClnCatch+Micro w/rflx Cult * Procedure Codes: 3 6415 VENIPUNCT, ROUTINE* * * The named appointment provid er may or may not be the originator of this progress note, and it is not deemed complete until electronically signed by the appointment provider. Sign off status: Pending * Provider: Tess Chen MD Date: 0 10/16/2024 Generated for Augustin madsen/Zoran/Rahel on: 1 06/06/2024 09:50 AM EST
--- OUTSIDE RECORDS SUMMARY | 2024-10-23 03:30 | XMS_ITS ---
Author Organization Stone Chen MD Address [address] [place], [place] [id number] Care Team Providers Care Print Line Inspector Name Role Phone Stone Chen Primary Care Provider Allergies Allergen (clinical drug ingredient) Drug/Non Drug Allergy documented on EMR Reaction Allergy Type Onset Date Status Levaquin Unknown Drug Allergy Active azithromycin azithromycin (uncoded) GI upset Allergy Active REASON FOR VISIT annual visit Medications Medication SIG (Take, Route, Frequency, Duration) Notes Start Date End Date Status Multivitamins Orally Not-Ta monty Claritin 10 MG 1 tablet Orally Once a day Not-Taking Vitamin D (Cholecalciferol) 1000 UNIT 1 tablet Orally Once a day Not-Taking Allergy Relief 10 MG 1 tablet Orally Onc e a day Not-Taking Albuterol Sulfate HFA 108 (90 Base) MCG/ACT 1 puff as needed Inhalation every 4 hrs 01/12/2021 Active Albuterol Sulfate (2.5 MG/3ML) 0.083% 3 mL as needed Inhalation every 6 hrs 06/07/2024 Active Breo Ellipta 100-25 MCG/ACT INHALE 1 PUFF BY MOUTH EVERY DAILY FOR 30 DAYS Active Ventolin HFA 108 (90 Base) MCG/ACT INHALE 2 PUFFS BY MOUTH EVERY 4 TO 6 HOURS Active [place] Thyroid 15 MG 15mg &30mg for a totalof 45mg Orally Once a day Active Flonase Allergy Relief 50 MCG/ACT 1 spray in each nostril Nasally Once a day for 30 day(s) Active Social History Tobacco Use: Social History Observation Description Date Details (start date - stop date) Former Smoker NA - NA Tobacco Use/Smoking Question Answer Notes Patient is a former smoker How long has it been since y ou last smoked? > 10 years Additional Findings: Tobacco Non-User Fo rmer smoker, currently using no form of tobacco Alcohol Screen Question Answer Notes Did you have a drink containing alcohol in the p ast year? No Points 0 Interpretation Negative Vital Signs Blood pressure systolic 138 mm Hg 10/24/19 25 Blood pressure diastolic 70 mm Hg 025 Height 66 in 10/23/2024 Weight 256 lbs 10/23/2024 BMI 41.31 kg/m2 10/23/2024 weight is down 4 pounds [facility] e 06-07-24 Encounters Encounter Location Date Provider Diagnosis Stone Chen MD [address] [place] [address] [address] [place], [place] [id number] 10/23/2024 Stone Chen Essential hypertensi on I10 ; Encounter for general adult medical examination without abnormal findings Z00.00 ; Prediabetes R73.09 ; History of hematuria Z87.448 ; Annual physical exam Z00.00 ; Acquired hypothyroidism E03.9 ; Depression screening Z13.31 and Asthmatic bronchitis, mild intermittent, uncomplicated J45.20 Assessments Encounter Date Diagnosis (ICD Code) Assessment Notes Treatment Notes Treatment Clinical Notes Section Notes 10/23/2024 Essential hypertension (ICD-10 - I10) well controlled 10/23/2024 Encounter for general adult medical examination without abnormal findings (ICD-10 - Z00.00) Labs reviewed and discussed with patient 10/23/2024 Prediabetes (ICD-10 - R73.09) still with good a1c 10/23/2024 History of hematuria (ICD-10 - Z87.448) has been evaluated 10/23/2024 Annual physical exam (ICD-10 - Z00.00) 10/23/2024 Acquired hypothyroidism (ICD-10 - E03.9) 10/23/2024 Depression screening (ICD-10 - Z13.31) 10/23/2024 Asthmatic bronchitis, mild intermittent, uncomplicated (ICD-10 - J45.20) Plan Of Treatment Medication Medication Name Sig Start Date Stop Date Notes Albuterol Sulfate HFA 108 (9 0 Base) MCG/ACT 1 puff as needed Inhalation every 4 hrs 01/12/2021 Albuterol Sulfate (2.5 MG/3ML) 0.083% 3 mL as needed Inhalation every 6 hrs 06/07/2024 Breo Ellipta 100-25 MCG/ACT INHALE 1 PUF F BY MOUTH EVERY DAILY FOR 30 DAYS Ventolin HFA 108 (90 Base) MCG/ACT INHALE 2 PUFFS BY MOUTH EVERY 4 TO 6 HOURS [place] Thyroid 15 MG 15mg &30mg for a to talof 45mg Orally Once a day Treatment Notes Assessment Notes Essential hypertension well controlled Encounter for general adult medical examination without abnormal findings Labs reviewed and discussed with patient Prediabetes still with good a1c History of hematuria has been evaluated Next Appt Details Follow Up: 6 Months, Reason: Provider Name:Stone fernandez, 05/28/2025 09:00:00 AM, [address] [place] [address], [address] [place] [address], [phone], Provider Name:Stone fernandez, 10/17/2025 08:00:00 AM, [address] [place] [address], Suite [facility], [place], [place], [phone], Provider Name:Stone fernandez, 10/24/2025 09:30:00 AM, [address] [place] [address], Suite [facility], [place], [place], [phone], Progress Notes * CHAPMANSKYLAJaqui EDOB :1960 (64 yo F)Acc No.[id number]:10/23/2024 Progress Notes Patient: Jaqui DUFF Provider: Tess Chen MD :1960 A ge:64 Y S ex:Female Date:10/23/2024 Address:[address] [place] [id number] Subjective: * Chief Complaints: * A nnual visit * HPI: D epression Screening: PHQ-9 L ittle interest or pleasure in doing things N ot at all, F eeling down, depressed, or hopeless N ot at all, T rouble falling or staying asleep, or sleeping too much N ot at all, F eeling tired or having little energy N ot at all, P oor appetite or overeating N ot at all, F eeling bad about yourself or that you are a failure, or have let yourself or your family down N ot at all, T rouble concentrating on things, such as reading the newspaper or watching television N ot at all, M oving or speaking so slowly that other people could have noticed; or the opposite, being so fidgety or restless that you have been moving around a lot more than usual N ot at all, T houghts that you would be better off or of hurting yourself in some way N ot at all, T otal Score 0 . I nterpretation and Intervention D epression Screening Findings N egative, F ollow-Up for Depression : review of PHQ-9 found negative result, no follow-up needed. C ommunication Needs: Communication Needs D oes the patient have a hearing impairment N o, D oes the patient have a vision impairment? Y es, I f yes, what is the vision impairment? G lasses, D oes the patient have a cognition impairment? N o. F all Risk: History H ave you had any falls with injury in the past year? N o, H ave you had two or more falls in the past year? N o. S LOYD Questions: SDOH Questions I n the past year have you been worried about losing housing? N o, I n the past year have you or any family members you live with been unable to get any of the following when it was really needed? Check all that apply: N one. S ymptom(s): patient is a 64 yo female here for annual visit with review of recent labs and follow up of chronic issues. * ROS: G eneral/Constitutional: Change in appetite d enies. C hills d enies. F ever d enies. O phthalmologic: Blurred vision d enies. D ischarge d enies. P ain d enies. E NT: Decreased hearing d enies. S ore throat d enies.?Swollen glands d enies. E ndocrine: Cold intolerance d enies. E xcessive thirst d enies. H eat intolerance d enies. W eight loss d enies. R espiratory: Cough d enies. S hortness of breath at rest d enies. S hortness of breath with exertion d enies. W heezing d enies. C ardiovascular: Chest pain at rest d enies. C hest pain with exertion?denies. I rregular heartbeat d enies. S hortness of breath d enies. ? G astrointestinal: Abdominal pain d enies. C hange in bowel habits d enies. D iarrhea d enies. N ausea d enies. R ectal bleeding d enies. V omiting d enies . G enitourinary: Blood in urine d enies. D ifficulty urinating d enies. F requent urination d enies. U rinary incontinence D enies. M usculoskeletal: Painful joints d enies. W eakness d enies. ? S kin: Dry skin d enies. I tching d enies. D enies?Mole(s), changes in moles, new moles or any lesions of concern. D enies P hotosensitivity. R summer d enies. N eurologic: Dizziness d enies. F ainting d enies. H eadache?denies. * Medical History: * Surgical History: * Hospitalization/Major Diagno stic Procedure: * Family History: F ather: 88 yrs, alzheimer. M other: alive 100 yrs, diabetes mellitus, Parkinsons, artial fibrillation, hypertension. 1 brother(s) , 1 sister(s) . 1 son(s) , 2 daughter(s) . .? Father-???, Denies mental health/substance abuse family history, Denies mental health/substance abuse family history, Denies mental health/substance abuse family history, Denies mental health/substance abuse family history. * Social History: T obacco Use: T obacco Use/Smoking P atient is a f ormer smoker, H ow long has it been since you last smoked? > 10 years, A dditional Findings: Tobacco Non-User F ormer smoker, currently using no form of tobacco. D rugs/Alcohol: A lcohol Screen D id you have a drink containing alcohol in the past year? N o, P oints 0 , I nterpretation N egative. M iscellaneous: C affeine: no. Children: yes. Community involvements: yes. Exercise: yes, walk and weights. Housing: owning. Living with: spouse, family. Marital status: . Occupation: works full-time. Pets: dog. Travel outside of the [place]: no. * Medications: T akingFlonase Allergy Relief 50 MCG/ACT Suspension 1 spray in each nostril Nasally Once a day [place] Thyroid 15 MG Tablet 15mg &30mg for a totalof 45mg Orally Once a day Ventolin HFA 108 (90 Base) MCG/ACT Aerosol Solution INHALE 2 PUFFS BY MOUTH EVERY 4 TO 6 HOURS Breo Ellipta 100-25 MCG/ACT Aerosol Powder Breath Activated INHALE 1 PUFF BY MOUTH EVERY DAILY FOR 30 DAYS Albuterol Sulfate (2.5 MG/3ML) 0.083% Nebulization Solution 3 mL as needed Inhalation every 6 hrs Taking Flonase Allergy Relief 50 MCG/ACT Suspension 1 spray in each nostril Nasally Once a day Taking [place] Thyroid 15 MG Tablet 15mg &30mg for a totalof 45mg Orally Once a day Taking Ventolin HFA 108 (90 Base) MCG/ACT Aerosol Solution INHALE 2 PUFFS BY MOUTH EVERY 4 TO 6 HOURS Taking Breo Ellipta 100-25 MCG/ACT Aerosol Powder Breath Activated INHALE 1 PUFF BY MOUTH EVERY DAILY FOR 30 DAYS Taking Albuterol Sulfate (2.5 MG/3ML) 0.083% Nebulization Solution 3 mL as needed Inhalation every 6 hrs Not- Taking/PRNAlbuterol Sulfate HFA 108 (90 Base) MCG/ACT Aerosol Solution 1 puff as needed Inhalation every 4 hrs Allergy Relief 10 MG Tablet 1 tablet Orally Once a day Vitamin D (Cholecalciferol) 1000 UNIT Tablet 1 tablet Orally Once a day Claritin 10 MG Tablet 1 tablet Orally Once a day Multivitamins Capsule Orally Not-Taking/PRN Albuterol Sulfate HFA 108 (90 Base) MCG/ACT Aerosol Solution 1 puff as needed Inhalation every 4 hrs Not-Taking/PRN Allergy Relief 10 MG Tablet 1 tablet Orally Once a day Not-Taking/PRN Vitamin D (Cholecalciferol) 1000 UNIT Tablet 1 tablet Orally Once a day Not-Taking/PRN Claritin 10 MG Tablet 1 tablet Orally Once a day Not- Taking/PRN Multivitamins Capsule Orally DiscontinuedAmoxicillin-Pot Clavulanate 875-125 MG Tablet 1 tablet Orally every 12 hrs predniSONE 10 MG Tablet 1 tablet with food or milk Orally 4 tabs for 3 days,3tabs for 3 days, 2 tabs for 3 days, and 1 tab for 3 days Medication List reviewed and reconciled with the patientDiscontinued Amoxicillin-Pot Clavulanate 875-125 MG Tablet 1 tablet Orally every 12 hrs Discontinued predniSONE 10 MG Tablet 1 tablet with food or milk Orally 4 tabs for 3 days,3tabs for 3 days, 2 tabs for 3 days, and 1 tab for 3 days Medication List reviewed and reconciled with the patient * Allergies: a zithromycin: GI upsetLevaquinyes[Allergies Verified] Objective: * Vitals: H t: 66, Wt: 256, BMI:41.31, BP:138/70, Wt-k.12. weight is down 4 pounds since 06-07-24. * P ast Orders: L ab:UA ClnCatch+Micro w/rflx Cult (Order Date - 10/16/2024) (Collection Date & Time - 10/16/2024 07:00 AM) Value Reference Range Color Urine Yellow - Appearance Urine Clear - PH 6.0 5.0-9.0 - Glucose Urine UA Negative Negative - mg/dL Urine Blood Small (1+) A Negative - Specific [place] - Urine 1.020 1.005-1.025 - Urine Protein Negative Neg-Trace - mg/dL Urine Ketones Trace Negative - mg/dL Nitrite Urine Negative Negative - Leukocyte Esterase Urine Negative Negative - RBC Urine 11-20 A 0-2 - /HPF WBC Urine 0-5 0-5 - /HPF Squamous Epithelial Cell Urine 3-5 0-2 - /HP F Bacteria Urine None Seen None Seen - Hyaline Casts Urine 0-2 0-2 - /LPF L ab:Lipid Panel (Order Date - 10/16/2024) (Collection Date & Time - 10/16/2024 07:00 AM) Value Reference Range Triglycerides 158 H <150 - mg/dL Cholesterol 183 <200 - mg/dL LDL Cholesterol Calculated 115 H <100 - mg/dL HDL Cholesterol 37 L >40 - mg/dL L ab:TSH reflex Free T4 (Order Date - 10/16/2024) (Collection Date & Time - 10/16/2024 07:00 AM) Value Reference Range TSH reflex Free T4 3.12 0.32-4.0 - uIU/mL L ab:Microalbumin, Random (Order Date - 10/16/2024) (Collection Date & Time - 10/16/2024 07:00 AM) Value Reference Range Creatinine Urine 242.44 - mg/dL Microalbumin Urine 20.0 - mg/L Microalbum Creatinine Ratio Ur 8.2 <30 - ug/ mg cr L ab:Complete Blood Count Auto Diff (Order Date - 10/16/2024) (Collection Date & Time - 10/16/2024 07:00 AM) Value Reference Range White Blood Count 8.4 4.8-10.8 - X10*3/uL Red Blood Count 4.65 4.20-5.50 - X10*6/uL Hemoglobin 13.5 12.0-16.0 - g/dl Hematocrit 41.2 37.0-47.0 - % Mean Corpuscular Volume 88.6 80.0-98.0 - fL Mean Corpuscular Hemoglobin 29.0 27.0-33.0 - pg Mean Corpuscular HGB Conc 32.8 31.0-35.0 - g/ dl Red Cell Distribution Width 13.3 11.0-16.0 - % Platelet Count 283 160-400 - X10*3/uL Mean Platelet Volume 10.0 9.4-12.3 - fL Neutrophils Percent Auto 71.1 45-73 - % Imm Gran Pct Auto 0.4 0.0-0.4 - % Lymphocytes Percent Auto 17.8 L 20-40 - % Monocytes Percent Auto 8.2 2-11 - % Eosinophils Percent Auto 2.1 0-4 - % Basophils Percent Auto 0.4 0-2 - % NRBC Pct Auto 0.0 0.0-0.2 - /100WBC Neutrophils Absolute Auto 6.0 2.0-8.3 - x10* 3/uL Imm Gran Abs Auto 0.03 0.00-0.03 - X10*3/uL Lymphocytes Absolute Auto 1.5 1.2-4.9 - X10* 3/uL Monocytes Absolute Auto 0.7 0.1-1.2 - X10*3/ uL Eosinophils Absolute Auto 0.2 0.0-0.4 - X10* 3/uL Basophils Absolute Auto 0.0 0.0-0.2 - X10*3/ uL NRBC Abs Auto 0.000 0.0-0.012 - X10*3/uL L ab:Hemoglobin A1c (Order Date - 10/16/2024) (Collection Date & Time - 10/16/2024 07:00 AM) Value Reference Range Hemoglobin A1c % 5.6 <6.0 - % Estimated Average Glucose 114 - mg/dL L ab:Comprehensive [place]. Panel Fast (Order Date - 10/16/2024) (Collection Date & Time - 10/16/2024 07:00 AM) Value Reference Range Sodium 141 135-145 - mmol/L Bilirubin Total 0.5 0.0-1.0 - mg/dL Aspartate Amino Transferase 27 5-31 - U/L Alanine Aminotransferase 26 0-31 - U/L Total Protein 6.8 6.5-8.0 - g/dL Albumin Level 4.0 3.5-5.0 - g/dL Alkaline Phosphatase 72 39-117 - U/L Potassium 4.9 3.3-5.1 - mmol/L Chloride 105 96-108 - mmol/L Carbon Dioxide 29 22-29 - mmol/L Anion Gap 12 12-20 - Blood Urea Nitrogen 19 H 9-16 - mg/dL Creatinine 1.08 0.5-1.4 - mg/dL Estimated Glomerular Filt Rate 51 - Glucose Fasting 112 H 60-99 - mg/dL Calcium 9.1 8.4-10.2 - mg/dL * Examination: G eneral Examination: GENERAL APPEARANCE: w ell developed, well nourished, in no acute distress. HEAD: n ormocephalic, atraumatic. EYES: p upils equal, round, reactive to light and accommodation, sclera non-icteric. EARS: n ormal. ORAL CAVITY: m ucosa moist. THROAT: c lear. NECK/THYROID: n malachi supple, full range of motion, no cervical lymphadenopathy, no bruits. SKIN: w arm and dry, no suspicious lesions. HEART: r egular rate and rhythm, S1, S2 normal, no murmurs.? LUNGS: c lear to auscultation bilaterally. BREASTS: d eclined. ABDOMEN: s oft, nontender, nondistended, bowel sounds present, normal, no organomegaly , no masses palpable. RECTAL EXAM: d eclined. FEMALE GENITOURINARY: d one by loading machine operator helper. EXTREMITIES: n o clubbing, cyanosis, or edema. NEUROLOGIC: n onfocal, motor strength normal upper and lower extremities, sensory exam intact. Assessment: * Assessment: 1. E ncounter for general adult medical examination without abnormal findings - Z00.00 (Primary) 2 . E ssential hypertension - I10 3 . P rediabetes - R73.09 4 . H istory of hematuria - Z87.448 5 . A nnual physical exam - Z00.00 6 . A cquired hypothyroidism - E03.9 7 . D epression screening - Z13.31 8 . A sthmatic bronchitis, mild intermittent, uncomplicated - J45.20 Plan: * Treatment: 2. E ssential hypertension Notes: well controlled 3. P rediabetes Notes: still with good a1c 4. H istory of hematuria Notes: has been evaluated 5. A cquired hypothyroidism Continue [place] Thyroid Tablet, 15 MG, 15mg &30mg for a totalof 45mg, Orally, Once a day. ? 6. A sthmatic bronchitis, mild intermittent, uncomplicated Continue Ventolin HFA Aerosol Solution, 108 (90 Base) MCG/ACT, INHALE 2 PUFFS BY MOUTH EVERY 4 TO 6 HOURS; C ontinue Breo Ellipta Aerosol Powder Breath Activated, 100-25 MCG/ACT, INHALE 1 PUFF BY MOUTH EVERY DAILY FOR 30 DAYS; C ontinue Albuterol Sulfate Nebulization Solution, (2.5 MG/3ML) 0.083%, 3 mL as needed, Inhalation, every 6 hrs; C ontinue Albuterol Sulfate HFA Aerosol Solution, 108 (90 Base) MCG/ACT, 1 puff as needed, Inhalation, every 4 hrs. * Procedure Codes: * Preventive Medicine: Counseling: C are goal follow-up plan: Gabby leslie for abnormal BMI provided?Yes, Elizabeth king Normal BMI Follow-up Tess hurst encouragement to exercise. * Follow Up: 6 Months * * Sign off status: Completed true * Provider: Tess Chen MD Date: 0 10/23/2024 Generated for Augustin madsen/Zoran/eTsiria on: 1 06/06/2024 09:50 AM EST History and Physical Notes * HPI (History of Present Illness) Category Sub-Category Detail Notes Category Not es Symptom(s) patient is a 64 yo female here for annual visit with review of recent labs and follow up of chronic issues. Depression Screening PHQ-9 Little inte rest or pleasure in doing things: Not at all Feeling down, depressed, or hopeless: No t at all Trouble falling or staying asleep, or sl eeping too much: Not at all Feeling tired or having little energy: N ot at all Poor appetite or overeating: Not at all Feeling bad about yourself o r that you are a failure, or have let yourself or your family down: Not at all Trouble concentrating on thi ngs, such as reading the newspaper or watching television: Not at all Moving or speaking so slowly that other people could have noticed; or the opposite, being so fidgety or restless that you have been moving around a lot more than usual: Not at all Thoughts that you would be b ji off or of hurting yourself in some way: Not at all Total Score: 0 Interpretation and Intervention Depression Jerald choe Findings: Negative Follow-Up for Depression: : review of PH Q-9 found negative result, no follow-up needed SDOH Questions SDOH Questions In the past year have you been worried about losing housing?: No In the past year have you or any family members you live with been unable to get any of the following when it was really needed? Check all that apply:: None Fall Risk History Have you had any falls with injury i n the past year?: No Have you had two or more falls in the st year?: No Communication Needs Communication Needs Does the patient have a hearing impairment: No Does the patient have a vision impairmen t?: Yes If yes, what is the vision impairment?: Glasses Does the patient have a cognition impair ment?: No Examination Category Sub-Category Detail Notes Category Not es General Examination GENERAL APPEARANCE: well dev eloped, well nourished, in no acute distress HEAD: normocephalic, atrau matic EYES: pupils equal, round, reactive to light and accommodation, sclera non-icteric EARS: normal THROAT: clear NECK/THYROID: neck supple, full ra nge of motion, no cervical lymphadenopathy, no bruits HEART: regular rate and rhy thm, S1, S2 normal, no murmurs LUNGS: clear to auscultatio n bilaterally ABDOMEN: soft, nontender, non distended, bowel sounds present, normal, no organomegaly , no masses palpable NEUROLOGIC: nonfocal, motor stre ngth normal upper and lower extremities, sensory exam intact SKIN: warm and dry, no lionel picious lesions EXTREMITIES: no clubbing, cyanosi s, or edema BREASTS: declined RECTAL EXAM: declined FEMALE GENITOURINARY: done by loading machine operator helper ORAL CAVITY: mucosa moist
[2025-04-05 09:49] VITALS: BP 120/68; PULSE 75; O2SAT 98; BMI 41.8
--- NOTE | 2025-04-05 09:49 | MHC.OFFVIS ---
Vital Signs 04/05/25 09:49 Height 5 ft 6 in Weight 259 lb 2 oz BMI 41.8 BP 120/68 Blood Pressure Location Rt radial Position Sitting Pulse 75 Pulse Source Pulse Oximeter Pulse Oximetry (%) 98 Oxygen Delivery Method Room Air Intake Visit Reasons: Asthma Allergies pecan nut Allergy (Unknown, Verified 04/05/25 09:54) ITCHY THROAT walnut Allergy (Unknown, Verified 04/05/25 09:54) ITCHY THROAT erythromycin base (Erythromycin Base) Adverse Reaction (Intermediate, Verified 04/05/25 09:54) VOMITING levaquin Allergy (Severe, Uncoded 04/05/25 09:54) Wheezing HPI HPI Asthma: Details: Jaqui is a pleasant 64 year old female, former minimal smoker, quit 30 years ago, with underlying childhood asthma, HTN and hypothyroidism. Over the last six months, patient reports excellent control of respiratory symptoms on Breo 100 mcg, rarely requiring albuterol MDI/neb. At this time, denies any respiratory symptoms and denies any visits to urgent care or hospitalizations since the last visit. Today she presents for a routine follow up for asthma. [facility] Medical History (Updated 04/06/24 @ 10:57 by Lee Ann Hunt NP) Hypothyroid Asthma Social History Alcohol intake: never Patient Tobacco Use Status: Former Tobacco user Cigarettes Per Day: 3 Years Smoked: approx 5/ Quit 30 yrs ago. Review of Systems Const Denies chills, Denies excessive sweating, Denies fever(s), Denies headache(s) and Denies night sweats Eyes Denies dry eyes, Denies irritation and Denies itchy eyes ENT Reports Normal hearing present, Denies headache(s), Denies nasal congestion, Denies nasal discharge, Denies post nasal drip and Denies sore throat Card Denies chest pain, Denies chest pain at rest, Denies chest pain with activity, Denies claudication, Denies leg edema, Denies dyspnea, Denies dyspnea on exertion, Denies orthopnea and Denies paroxysmal nocturnal dyspnea Resp Denies chest congestion, Denies cough, Denies excessive phlegm production, Denies pain on inspiration, Denies pain with cough, Denies dyspnea, Denies dyspnea on exertion, Denies stridor and Denies wheezing Musc Denies myalgias Neuro Reports Normal hearing present and Denies headache(s) Endo Denies excessive sweating Luis/Lymph Denies lymphadenopathy Aller/Immun Denies itchy eyes, Denies seasonal rhinorrhea and Denies wheezing Physical Exam Vital Signs: Last Vital Signs Pulse 75 04/05/25 09:49 BP 120/68 04/05/25 09:49 Pulse Ox 98 04/05/25 09:49 Oxygen Delivery Method Room Air 04/05/25 09:49 BMI result Body Mass Index 41.8 Const General: cooperative, healthy appearing, comfortable, no acute distress, well developed and alert Nutritional Appearance: obese Orientation/consciousness: patient oriented x3 Limitations: no limitations HEENT Head: Yes normal to inspection, Yes normocephalic and Yes atraumatic Ears: hearing grossly normal bilaterally and external ears normal Eyes General: appearance normal, both eyes and all related structures Eyelids: Yes eyelids normal Sclerae: sclerae normal EOM: EOMs intact bilaterally Neck Neck: Yes normal visual inspection and Yes no lymphadenopathy Lymphatic: no lymphadenopathy noted Chest Chest palpation & inspection: normal inspection of the chest Resp Effort & Inspection: normal respiratory effort, able to speak in complete sentences, no audible wheezes, no cough, no stridor, not tachypneic, no tripod positioning and no use of accessory muscles Auscultation: clear to auscultation bilaterally Cardio Jugular venous distension: no JVD Rate: regular rate Rhythm: regular rhythm Skin Other: warm, dry General skin exam: no rashes or lesions noted Neuro General: patient oriented x3 Cranial nerves: Yes Normal hearing present Cognition (Neuro): normal cognition Gait exam (Neuro): Normal gait present Extrem General: Yes normal to inspection, Yes capillary refill normal, Yes no clubbing, cyanosis or edema and Yes no pedal edema Psych Appearance: grossly normal and well kempt Speech and movement: Normal speech and movement present and Clear speech present Affect: normal affect Attitude: cooperative Thought process: Normal thought process present Thought content: Normal thought content present Insight: Good insight present (Psych) Judgement: Good judgement present (Psych) Assessment & Plan Assessment & Plan (1) Asthma-COPD overlap syndrome: Code(s): J44.89 - Other specified chronic obstructive pulmonary disease Category: Medical (2) Pulmonary nodule: Code(s): R91.1 - Solitary pulmonary nodule Category: Medical Plan Jaqui reports excellent control of respiratory symptoms with Breo and albuterol MDI/neb, advised to continue. She is aware to call if symptoms change. Prior chest CT 09/2024 revealed stable findings with no need for further imaging at this time. Will send message to PCP regarding moderate CAD noted on prior CT. All questions were answered and patient is in agreement of plan. Will follow up in 6-9 months or sooner if needed. Medications: New albuterol sulfate 90 mcg/actuation 1 puff PO Q4H PRN 1 ea 3RF Wheezing Refilled fluticasone furoate-vilanterol 100-25 mcg/dose (Breo Ellipta) 1 inh inhalation DAILY 60 ea 6RF Coding Level of Care Code Est Pt Level 3 (43417) Diagnoses Asthma-COPD overlap syndrome J44.89 Pulmonary nodule R91.1
--- OUTSIDE RECORDS SUMMARY | 2025-04-05 09:51 | XMS_ITS | Patient Health Record ---
Author Organization [facility] Address [address] [place] [address] Care Team Providers Care Hop Trainer Name Role Phone Gustavo ORTIZ, Stone Primary Care Provider Raffi Krause [phone] Allergies Allergen (clinical drug ingredient) Drug/Non Drug Allergy documented on EMR Reaction Allergy Type Onset Date Status hayfever (uncoded) Unknown Allergy A ctive Azithromycin Hydrogencitrate Unknown Drug Allergy Active prednisolone PrednisoLONE Unknown Drug Allergy A ctive Reason For Referral No Information Medications Medication SIG (Take, Route, Frequency, Duration) Notes Start Date End Date Status Potassium & Magnesium Aspartat Active Allergy Relief Activ e [place] Thyroid Activ e Probiotic Active Social History Social History Additional Details Category Social Info Options Details Miscellaneous: Marital status: 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 Section Notes: Nonsmoker > 10 years; no sig alcohol Problems Problem Type SNOMED Code ICD Code Onset Dates Problem Status W/U Status Risk Notes Problem Screening for malignant neoplasm of colon (232651096) Encounter for screening for malignant neoplasm of colon (Z12.11) Active confirmed Problem Screening for malignant neoplasm of rectum (787800283) Encounter for screening for malignant neoplasm of rectum (Z12.12) Active confirmed Problem Preprocedural examination (809598422771130) Preprocedural examination (Z01.818) Active confirmed Plan Of Treatment Pending Test Test Name Order Date GI BIOPSY 10/08/2016 Future Test Test Name Order Date COLONOSCOPY 06/01/2016 Insurance Providers Payer Name Payer Address Payer Phone Subscriber Number Group Number Insured Name Patient Relationship to Insured Coverage Start Date Coverage End Date [facility] [address] [place], [place] [id number] CAM KHOURY Self - patient is the insured Medical (General) History Medical History History ICD Code Asthma--does not use anything regularly 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
--- OUTSIDE RECORDS SUMMARY | 2025-04-05 09:51 | XMS_ITS | Patient Health Record ---
[facility] Address [address] [place] [address] Care Team Providers Care Explosive Expert Name Role Phone Stone Chen MD Primary Care Provider Shy Torres Anya Unavailable [phone] Allergies Allergen (clinical drug ingredient) Drug/Non Drug Allergy documented on EMR Reaction Allergy Type Onset Date Status ciprofloxacin Cipro Unknown Drug Allergy Act rylee erythromycin Erythromycin Unknown Drug Allergy A ctive Reason For Referral No Information Medications Medication SIG (Take, Route, Fr equency, Duration) Notes Start Date End Date Status Breo Ellipta Active [place] Thyroid Activ e Albuterol Active Ciclopirox 8 % 1 application 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 No Tobacco Control (Standard) Question Answer Notes Tobacco use: Nonsmoker Additional Findings: Tobacco non-user Current no nsmoker AUDIT-C (Standard) Question Answer Notes Did you have a drink containing alcohol in the p ast year? No Points 0 Interpretation Negative Vital Signs Blood pressure diastolic 75 mm Hg 03/25/2025 Height 5ft 6in in 03/25/2025 Blood pressure systolic 124 mm Hg 03/25/2025 Weight 258 lbs 03/25/2025 BMI 41.64 kg/m2 03/25/2025 Encounters Encounter Location Date Provider Diagnosis [address] [address] 05/31/2024 Anya Black Pain in right toe(s) M79.674 ; Onychomycosis B35.1 ; Pain in left toe(s) M79.675 and Xerosis of skin L85.[address] [address] 09/10/2024 Anya Black Pain in right toe(s) M79.674 ; Onychomycosis B35.1 ; Pain in left toe(s) M79.675 and Xerosis of skin L85.[address] [address] 12/17/2024 Anya Black Onychomycosis B35.1 ; Metatarsalgia, right foot M77.41 ; Pain in right toe(s) M79.674 ; Pain in left toe(s) M79.675 ; Pain in right foot M79.671 ; Pain in right ankle and joints of right foot M25.571 and Bursitis of intermetatarsal bursa of right foot M77.[address] [address] 03/25/2025 Anya Black Onychomycosis B35.1 ; Metatarsalgia, right foot M77.41 ; Pain in right toe(s) M79.674 ; Pain in left toe(s) M79.675 ; Pain in right foot M79.671 ; Pain in right ankle and joints of right foot M25.571 and Bursitis of intermetatarsal bursa of right foot M77.[address] [address] 05/01/2024 Anya Black Assessments Encounter Date Diagnosis (ICD Code) Assessment Notes Treatment Notes Treatment Clinical Notes Section Notes 05/31/2024 Pain in right toe(s) (ICD-10 - M79.674) 09/10/2024 Pain in right toe(s) (ICD-10 - M79.674) 09/10/2024 Onychomycosis (ICD-10 - B35.1) 12/17/2024 Metatarsalgia, right foot (ICD-10 - M77.41) 12/17/2024 Onychomycosis (ICD-10 - B35.1) 03/25/2025 Metatarsalgia, right foot (ICD-10 - M77.41) 03/25/2025 Onychomycosis (ICD-10 - B35.1) 03/25/2025 Pain in right toe(s) (ICD-10 - M79.674) 12/17/2024 Pain in right toe(s) (ICD-10 - M79.674) 05/31/2024 Onychomycosis (ICD-10 - B35.1) 09/10/2024 Pain in left toe(s) (ICD-10 - M79.675) 09/10/2024 Xerosis of skin (ICD-10 - L85.3) 05/31/2024 Pain in left toe(s) (ICD-10 - M79.675) 12/17/2024 Pain in left toe(s) (ICD-10 - M79.675) 03/25/2025 Pain in left toe(s) (ICD-10 - M79.675) 03/25/2025 Pain in right foot (ICD-10 - M79.671) 12/17/2024 Pain in right foot (ICD-10 - M79.671) 05/31/2024 Xerosis of skin (ICD-10 - L85.3) 12/17/2024 Pain in right ankle and joints of right foot (ICD-10 - M25.571) 03/25/2025 Pain in right ankle and joints of right foot (ICD-10 - M25.571) 12/17/2024 Bursitis of intermetatarsal bursa of right foot (ICD-10 - M77.51) 03/25/2025 Bursitis of intermetatarsal bursa of right foot (ICD-10 - M77.51) Plan Of Treatment Next Appt Details Provider Name:Anya Torres , 07/22/2025 04:00:00 PM, [address] [place], [address], Insurance Providers Payer Name Payer Address Payer Phone Subscriber Number Group Number Insured Name Patient Relationship to Insured Coverage Start Date Coverage End Date [facility] [address] [place] [address] [phone] [id number] Jaqui Arevalo Self - patient is the insured Medical (General) History Medical History History ICD Code Anxiety asthma Back,Hip,and Knee pain Broken bones Cataracts covid-19 Diverticulosis Headaches/Migraines Hiatal hernia Psoriasis/eczema thyroid Measles Mumps Chicken pox Surgical History Surgery Date(Month/Year) hysterectomy cataract surgery
--- OUTSIDE RECORDS SUMMARY | 2025-04-05 09:51 | XMS_ITS | Patient Health Record ---
Author Organization Stone Chen MD Address [address] [place], [place] [id number] Care Team Providers Care Corrugator Supervisor Name Role Phone Stone Chen Primary Care Provider Allergies Allergen (clinical drug ingredient) Drug/Non Drug Allergy documented on EMR Reaction Allergy Type Onset Date Status Levaquin Unknown Drug Allergy Active azithromycin azithromycin (uncoded) GI upset Allergy Active Results Component Value Reference Range Notes CT chest wo con Reviewed date:10/04/2024 01:52:29 PM Interpretation: Performing Lab: Notes/Report: [address] [address] [address] Scan Report Signed Patient: Jaqui Law MR# : [id number] : 1960 Acct:[id number] Age/Sex: 64 / F ADM Date: 10/01/24 Loc: HO.CT Attending Dr: Lee Ann Hunt NP Ordering Physician: Lee Ann Hunt NP Date of Service: 10/01/24 Procedure(s): CT chest wo IV con Accession Number(s): [id number] cc: Stone Chen MD; Lee Ann Hunt NP Report Number: [id number]: Total DLP = 251.00 mGy-cm CLINICAL HISTORY: R91.1 - Solitary pulmonary nodule CT chest without contrast Comparison: CT/IL/SR - CT CHEST WITHOUT IV CONTRAST - 10/03/23 10:52 EDT Findings: No mediastinal mass or lymphadenopathy. No cardiomegaly. Moderate calcified coronary artery disease. Normal size aorta with trace calcified atherosclerotic disease. Calcified granuloma. Solid noncalcified pulmonary nodules measure up to 2 mm, unchanged. Subsegmental atelectasis versus linear scarring at the lung bases. No pneumothorax or pleural effusion. No acute osseous or soft tissue abnormality. No acute pathology in the imaged portion of the upper abdomen. Gastric diverticulum. Impression: No acute findings. Stable examination. No follow up is required. 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 No cardiomegaly. Moderate calcified coronary artery disease. Normal size aorta with trace calcified atherosclerotic disease. Calcified granuloma. Solid noncalcified pulmonary nodules measure up to 2 mm, unchanged. Subsegmental atelectasis versus linear scarring at the lung bases. No pneumothorax or pleural effusion. No acute osseous or soft tissue abnormality. No acute pathology i n the imaged portion of the upper abdomen. Gastric diverticulum. Impression: No acute findings. Stable examination. No follow up is required. This document has be en electronically signed by: Rosario Crump MD on 10/02/2024 13:40:34 Dictated By: Rosario Mak MD Signed By: <Electronically signed by Rosario Mak MD in OV> 10/02/24 134 DD/ 39 TD/TT: 10/02/241339 Energy Project Engineer: Complete Blood Count Auto Di ff Reviewed date:10/18/2024 05:12:49 PM Interpretation: Performing Lab:[facility], [address] [place] [phone] Notes/Report: White Blood Count 8.4 4.8-10.8 X10*3/uL Red Blood Count 4.65 4.20-5.50 X10*6/uL Hemoglobin 13.5 12.0-16.0 g/dl Hematocrit 41.2 37.0-47.0 % Mean Corpuscular Volume 88.6 80.0-98.0 fL Mean Corpuscular Hemoglobin 29.0 27.0-33.0 pg Mean Corpuscular HGB Conc 32.8 31.0-35.0 g/dl Red Cell Distribution Width 13.3 11.0-16.0 % Platelet Count 283 160-400 X10*3/uL Mean Platelet Volume 10.0 9.4-12.3 fL Neutrophils Percent Auto 71.1 45-73 % Imm Gran Pct Auto 0.4 0.0-0.4 % Lymphocytes Percent Auto 17.8 20-40 % Monocytes Percent Auto 8.2 2-11 % Eosinophils Percent Auto 2.1 0-4 % Basophils Percent Auto 0.4 0-2 % NRBC Pct Auto 0.0 0.0-0.2 /100WBC Neutrophils Absolute Auto 6.0 2.0-8.3 x10*3/uL Imm Gran Abs Auto 0.03 0.00-0.03 X10*3/uL Lymphocytes Absolute Auto 1.5 1.2-4.9 X10*3/uL Monocytes Absolute Auto 0.7 0.1-1.2 X10*3/uL Eosinophils Absolute Auto 0.2 0.0-0.4 X10*3/uL Basophils Absolute Auto 0.0 0.0-0.2 X10*3/uL NRBC Abs Auto 0.000 0.0-0.012 X10*3/uL Comprehensive Independence. Panel Fa Reviewed date:10/18/2024 05:21:20 PM Interpretation: Performing Lab:[facility], [address] [place] [phone] Notes/Report: Sodium 141 135-145 mmol/L Potassium 4.9 3.3-5.1 mmol/L Chloride 105 96-108 mmol/L Carbon Dioxide 29 22-29 mmol/L Anion Gap 12 12-20 Blood Urea Nitrogen 19 9-16 mg/dL Creatinine 1.08 0.5-1.4 mg/dL Estimated Glomerular Filt Rate 51 Chronic Kidney Disease: Estimated GFR < 60 mL/min/1.73m2 Severe Kidney Disease: Estimated GFR < 15 mL/min/1.73m2 Glucose Fasting 112 60-99 mg/dL A fasting glucose from 100-125 mg/dl is considered impaired (pre-diabetes). Calcium 9.1 8.4-10.2 mg/dL Bilirubin Total 0.5 0.0-1.0 mg/dL Aspartate Amino Transferase 27 5-31 U/L Alanine Aminotransferase 26 0-31 U/L Total Protein 6.8 6.5-8.0 g/dL Albumin Level 4.0 3.5-5.0 g/dL Alkaline Phosphatase 72 39-117 U/L Lipid Panel Reviewed date:10/18/2024 05:10:53 PM Interpretation: Performing Lab:[facility], [address] [place] [phone] Notes/Report: Triglycerides 158 <150 mg/dL Desirable Triglyceride: less than 150 mg/dL Borderline High Triglyceride 150-199 mg/dL High Triglyceride: 200-499 mg/dL Very High Triglyceride: greater than or equal to 5OO mg/dL Cholesterol 183 <200 mg/dL Desirable Cholesterol: less than 200 mg/dL Borderline High Cholesterol: 200-239 mg/dL High Cholesterol: greater than 239 mg/dL LDL Cholesterol Calculated 115 <100 mg/dL Desirable LDL: less than 100 mg/dL Near Optimal/Above Optimal LDL: 110-129 mg/dL Borderline High LDL: 130-159 mg/dL High LDL: 160-189 mg/dL Very High LDL: greater than or equal to 190 mg/dL HDL Cholesterol 37 >40 mg/dL Desirable HDL: greater than 40 mg/dL Note: This HDL assay may give artificially low results in patients with liver disease. TSH reflex Free T4 Reviewed date:10/18/2024 05:10:45 PM Interpretation: Performing Lab:[facility], [address] [place] [phone] Notes/Report: TSH reflex Free T4 3.12 0.32-4.0 uIU/mL Microalbumin, Random Reviewed date:10/18/2024 05:11:33 PM Interpretation: Performing Lab:[facility], [address] [place] [phone] Notes/Report: Creatinine Urine 242.44 Microalbumin Urine 20.0 Microalbum/Creatinine Ratio Ur 8.2 <30 ug/mg cr Albumin/Creatinine Ratio Reference Ranges: Normal: < 30 ug/mg creatinine Microalbuminuria: 30 - 300 ug/mg creatinine Clinical Albuminuria: > 300 ug/mg creatinine Hold Gold Reviewed date:10/18/2024 05:12:56 PM Interpretation: Performing Lab:[facility], [address] [place] [phone] Notes/Report: Margy Mehta See Note Specimen held untested for 24 hours; Call to request Chemistry testing. Hemoglobin A1c Reviewed date:10/18/2024 05:11:42 PM Interpretation: Performing Lab:[facility], [address] [place] [phone] Notes/Report: Hemoglobin A1c % 5.6 <6.0 % Hemoglobin A1C Reference Range Adults: 4.8 - 6.0 % Non diabetic: < 6.0 % Goal: < 7.0 % Additional Action Suggested: > 8.0 % Note: Hemoglobin A1c results are invalid for patients with abnormal amounts of HbF. Blood transfusions may impact the HbA1c concentration in the patient sample. Estimated Average Glucose 114 eAG = Estimated average glucose which is %A1C expressed as average glucose, using the formula of the [id number] Average Glucose study (ADAG), Diabetes Care, Vol.31,#8, Nov. 2007 UA ClnCatch+Micro w/rflx Cul t Reviewed date:10/18/2024 05:21:59 PM Interpretation: Performing Lab:[facility], [address] [place] [phone] Notes/Report: Urine, Clean Catch Color Urine Yellow Appearance Urine Clear PH 6.0 5.0-9.0 Glucose Urine UA Negative Negative mg/dL Urine Blood Small (1+) Negative Specific Allgood - Urine 1.020 1.005-1.025 Urine Protein Negative Neg-Trace mg/dL Urine Ketones Trace Negative mg/dL Nitrite Urine Negative Negative Leukocyte Esterase Urine Negative Negative RBC Urine 11-20 0-2 /HPF WBC Urine 0-5 0-5 /HPF Squamous Epithelial Cell Urine 3-5 0-2 /HPF Bacteria Urine None Seen None Seen Hyaline Casts Urine 0-2 0-2 /LPF Reason For Referral No Information Medications Medication SIG (Take, Route, Frequency, Duration) Notes Start Date End Date Status Multivitamins Orally Not-Ta monty Mayo Thyroid 15 MG 15mg &30mg for a totalof 45mg Orally Once a day Active Flonase Allergy Relief 50 MCG/ACT 1 spray in each nostril Nasally Once a day for 30 day(s) Active Albuterol Sulfate HFA 108 (90 Base) [...] MOUTH EVERY 4 TO 6 HOURS Active Claritin 10 MG 1 tablet Orally Once a day Not-Taking Vitamin D (Cholecalciferol) 1000 UNIT 1 tablet Orally Once a day Not-Taking Allergy Relief 10 MG 1 tablet Orally Onc e a day Not-Taking Immunizations Vaccine Route Administration Date Status Comme nts DECLINED, FLU Unknown 04/23/2013 Administered Flu Vaccine IM Intramuscular 01/28/2014 Administered TDaP IM Intramuscular 11/21/2014 Administered Fluarix Quadrivalent IM Intramuscular 01/24/2015 Administe red PPSV23 (Pnemovax) IM Intramuscular 01/24/2015 Administered Fluarix Quadrivalent IM Intramuscular 02/17/2016 Administe red Prevnar 13 IM Intramuscular 02/17/2016 Administered Fluarix Quadrivalent IM Intramuscular 01/11/2017 Administe red Fluarix Quadrivalent IM Intramuscular 01/31/2018 Administe red Shingrix IM Intramuscular 06/02/2018 Administered Shingrix IM Intramuscular 09/01/2018 Administered Tetanus Unknown 11/21/2014 Administered Fluarix Quadrivalent IM Intramuscular 01/16/2019 Adminrebecca jackson SARS-COV-2 Moderna Unknown 06/06/2020 Administered SARS-COV-2 Moderna Unknown 07/05/2020 Administered PPSV23 (Pnemovax) IM Intramuscular 10/30/2020 Administered SARS-COV-2 Pfizer Unknown 02/19/2021 Administered Fluarix Quadrivalent Unknown 02/19/2021 Administered Chilo pimentel's SARS-COV-2 Pfizer Unknown 02/19/2021 Administered Fluarix Quadrivalent Unknown 01/15/2022 Administered Social History Tobacco Use: Social History Observation [...] ast year? No Points 0 Interpretation Negative Problems Problem Type SNOMED Code ICD Code Onset Dates Problem Status W/U Status Risk Notes Problem 23174072 Essential hypertension (I10) Active confirmed Problem 598795290 Acquired hypothyroidism (E03.9) Active confirmed Problem 9803045 Prediabetes (R73.09) Active confirmed Problem 593357910 Other elevated white blood cell (WBC) count (D72.828) Active confirmed Problem 168920036 Asthmatic bronchitis, mild intermittent, uncomplicated (J45.20) Active confirmed Problem 688417959 History of hematuria (Z87.448) Active confirmed Problem 888915070 Abnormal mammogr am of right breast (R92.8) Active confirmed Problem 711390670 BMI 34.0-34.9,ad ult (Z68.34) Active confirmed Problem 807395444 BMI 38.0-38.9,ad ult (Z68.38) Active confirmed Vital Signs Blood pressure diastolic 70 mm Hg 10/23/2024 bernardo ght is down 4 pounds since 06-07-24 Height 66 in 10/23/2024 weight is down 4 pounds since 06-07-24 Blood pressure systolic 138 mm Hg 10/23/2024 weig ht is down 4 pounds since 06-07-24 Weight 256 lbs 10/23/2024 weight is down 4 pounds since 06-07-24 BMI 41.31 kg/m2 10/23/2024 weight is down 4 pounds since 06-07-24 Encounters Encounter Location Date Provider Diagnosis Stone Chen MD [address] [id number] 10/16/2024 Stone Chen Blood tests for routine general physical examination Z00.00 ; Essential hypertension I10 ; Prediabetes R73.09 and Acquired hypothyroidism E03.9 Stone Chen MD [address] [place] [id number] 04/16/2024 Stnoe Chen Essential hypertensi on I10 and Asthmatic bronchitis, mild intermittent, uncomplicated J45.20 Stone Chen MD [address] [place] [id number] 06/01/2024 Stone Chen Acute bronchitis due to other specified organisms J20.8 Stone Chen MD [address] [place] [id number] 06/07/2024 Stone Chen Acute bronchitis due to other specified organisms J20.8 Stone Chen MD [address] [place] [address] [id number] 10/23/2024 Stone Chen Essential hypertensi on I10 ; Encounter for general adult medical examination without abnormal findings Z00.00 ; Prediabetes R73.09 ; History of hematuria Z87.448 ; Annual physical exam Z00.00 ; Acquired hypothyroidism E03.9 ; Depression screening Z13.31 and Asthmatic bronchitis, mild intermittent, uncomplicated J45.20 Stone Chen MD [address] [place] [id number] 06/01/2024 Stone Chen MD [address] [place] [address] [address] [id number] 06/15/2024 Stone Chen MD [address] [place] [address] [address] [id number] 06/15/2024 Stone Chen Assessments Encounter Date Diagnosis (ICD Code) Assessment Notes Treatment Notes Treatment Clinical Notes Section Notes 10/16/2024 Blood tests for routine general physical examination (ICD-10 - Z00.00) 04/16/2024 Essential hypertension (ICD-10 - I10) gets better readings at home, will continue to monitor 04/16/2024 Asthmatic bronchitis, mild intermittent, uncomplicated (ICD-10 - J45.20) having good results. 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 06/07/2024 Acute bronchitis due to other specified organisms (ICD-10 - J20.8) patient verbalized understanding of medication and directions for use 10/23/2024 Essential hypertension (ICD-10 - I10) well controlled 10/23/2024 Encounter for general adult medical examination without abnormal findings (ICD-10 - Z00.00) Labs reviewed and discussed with patient 10/16/2024 Essential hypertension (ICD-10 - I10) 10/23/2024 Prediabetes (ICD-10 - R73.09) still with good a1c 10/16/2024 Prediabetes (ICD-10 - R73.09) 10/23/2024 History of hematuria (ICD-10 - Z87.448) has been evaluated 10/16/2024 Acquired hypothyroidism (ICD-10 - E03.9) 10/23/2024 Annual physical exam (ICD-10 - Z00.00) 10/23/2024 Acquired hypothyroidism (ICD-10 - E03.9) 10/23/2024 Depression screening (ICD-10 - Z13.31) 10/23/2024 Asthmatic bronchitis, mild intermittent, uncomplicated (ICD-10 - J45.20) Plan Of Treatment Pending Test Test Name Order Date Electrocardiogram (EKG) 11/10/2017 XR CHEST 2 VIEW PA & LAT 06/10/2023 BONE DENSITY DEXA 02/09/2021 Complete Blood Count Auto Diff Comprehensive Independence. Panel Fast Lipid Panel 10/16/2024 TSH reflex Free T4 10/16/2024 Microalbumin, Random 10/16/2024 MM diagnostic mammo unilat RT 05/23/2020 XR DEXA axial skeleton 10/30/2020 Hemoglobin A1c 10/16/2024 UA ClnCatch+Micro w/rflx Cult 10/16/2024 Next Appt Details Provider Name:Stone Brunson ier, 05/28/2025 09:00:00 AM, [address], [address], [place], [place], [phone], Provider Name:Stone Brunson ier, 10/17/2025 08:00:00 AM, [address], [address], [place], [place], [phone], Provider Name:Stone Brunson ier, 10/24/2025 09:30:00 AM, [address], [address], [place], [place], [phone], Insurance Providers Payer Name Payer Address Payer Phone Subscriber Number Group Number Insured Name Patient Relationship to Insured Coverage Start Date Coverage End Date [facility] [address] [employer] [address] [place] [address] [phone] [id number] Jaqui Vance Self - patient is the insured MEDICARE [address] [place] [address] [id number] Jaqui Vance Self - patient is the insured Medical (General) History Medical History History ICD Code colonoscopyr 10/08/16 w/Dr. Shasta cotto 10 years hematuria 31 years Complete hysterectomy 2013 hematuria work up 2020 Surgical History Surgery Date(Month/Year) total hysterectomy and reconstruction
== END 2025-04-05 10:12 | disposition home or self-care (01) ==
LOC: HO.HPSW 09:47
PROVIDERS: PCP Internal Medicine; Visit Provider Nurse Practitioner Family
DX: J44.89 Other specified chronic obstructive pulmonary disease (principal); R91.1 Solitary pulmonary nodule
CPT/HCPCS: 99213